=== PATIENT | female | born 1935 | race Hispanic/Latino ===

== ENCOUNTER 2017-10-21 03:23 | Inpatient (IN) | payer OTHER ==
[~2017-10-21] VITALS: Ht 160 cm; Wt 66.0 kg
[2017-10-21] MEDS ORDERED: LEVOTHYROXINE75 MCG PO (03:33)
[2017-10-21] MEDS ORDERED: LISINOPRIL10 M1 PO (03:33)
[2017-10-21] MEDS ORDERED: VIIBRYD40 M1 PO (03:34)
[2017-10-21] MEDS ORDERED: DEPAKOTE SPRIN125 M1 PO (03:34)
[2017-10-21] MEDS ORDERED: METFORMIN HCL1000 M1 PO (03:34)
[2017-10-21] MEDS ORDERED: SYSTANE 0.3-0.415 ML OPH (03:36)
[2017-10-21] MEDS ORDERED: DONEPEZIL HCL10 M1 PO (03:37)
[2017-10-21] MEDS ORDERED: CALCIUM 500 +1 EAC5 PO (03:38)
[2017-10-21] MEDS ORDERED: PRAVASTATIN SOD10 M2 PO (03:38)
[2017-10-21] MEDS ORDERED: SENEXON-S TABL1 EACH PO (03:39)
[2017-10-21] MEDS ORDERED: GAVILAX238 GM PO (03:41)
[2017-10-21] MEDS ORDERED: MILK OF MA400 MG/52 PO (03:42)
[2017-10-21] MEDS ORDERED: ENEMA133 M1 PR (03:43)
[2017-10-21] MEDS ORDERED: BISAC-EVAC10 M1 PR (03:43)
[2017-10-21] MEDS ORDERED: ACETAMINOPHEN500 M4 PO (03:44)
[2017-10-21] MEDS ORDERED: GLUCERNA1 EACH PO (03:44)
[2017-10-21] MEDS ORDERED: HUMALOG100 UNIT/2 SC (03:47)
[2017-10-21] MEDS ORDERED: LANTUS100 UNIT/1 SC (03:49)
[2017-10-21] MEDS ORDERED: ALENDRONATE SOD35 M2 PO (03:50)
[2017-10-21] MEDS ORDERED: LANTUS SOL100 UNIT/1 SC (03:50)
[2017-10-21 04:13] LABS: ABSOLUTE BASOPHIL COUNT 0 /CUMM (0.0-0.2); ABSOLUTE EOSINOPHIL COUNT 0.2 /CUMM (0.0-0.7); ABSOLUTE GRANULOCYTE CT 6.4 /CUMM (1.4-6.5); ABSOLUTE LYMPH COUNT 8.4 /CUMM (1.2-3.4); ABSOLUTE MONOCYTE COUNT 1.5 /CUMM (0.10-0.60); BASOPHIL % 0.2 % (0.0-2.0); GRANULOCYTE % 38.8 % (42.2-75.2); HEMATOCRIT 26.5 % (37-47); MEAN CORPUSCULAR HGB 29.1 PG (27.0-31.0); MEAN CORPUSCULAR HGB CONC 32.4 G/DL (33.0-37.0); MEAN CORPUSCULAR VOLUME 89.6 FL (81.0-99.0); PLATELET COUNT 235 /CUMM (130-400); RBC DISTRIBUTION WIDTH 15.3 % (11.5-14.5); RED BLOOD CELL CT 2.96 /CUMM (4.20-5.40); WHITE BLOOD CELL COUNT 16.6 /CUMM (4.8-10.8)
--- NOTE | 2017-10-21 04:15 | ED GI/GU/ABDOMINAL COMPLAINT ---
History of Present Illness General Chief Complaint: General Adult Stated Complaint: BIBA, VOMITING BLOOD Source: patient, old records, W10 Exam Limitations: clinical condition, dementia Vital Signs & Intake/Output Vital Signs & Intake/Output Vital Signs Date Time Temp Pulse Resp B/P B/P Pulse O2 O2 Flow FiO2 Mean Ox Delivery Rate 10/21 644 84 16 140/60 94 Room Air Room Air 10/21 0538 71 16 113/53 94 Room Air Room Air 10/21 0415 71 16 91/36 92 Room Air Room Air 10/21 0348 93 Room Air Room Air 10/21 0335 97.3 85 20 110/41 94 Room Air Allergies Coded Allergies: escitalopram (From LEXAPRO) (UNKNOWN 10/21/17) olanzapine (From ZYPREXA) (UNKNOWN 10/21/17) Reconcile Medications Acetaminophen 500 MG TABLET 650 MG PO Q4H,PRN PRN PAIN OR TEMP GREATER THAN 100 (Reported) Alendronate Sodium 35 MG TABLET 1 TAB PO QW (Reported) Bisacodyl (Bisac-Evac) 10 MG SUPP.RECT 1 SUPP [place] DAILY PRN CONSTIPATION ( Reported) Calcium Carbonate/Vitamin D3 (Calcium 500 + D Tablet) 500 MG-400 TABLET 1 TAB PO BID SUPPLEMENT (Reported) Divalproex Sodium (Depakote Sprinkle) 125 MG CAP.SPRINK 250 MG PO BID ( Reported) Donepezil HCl 10 MG TABLET 1 TAB PO DAILY (Reported) Insulin Glargine,Hum.rec.anlog (Lantus Solostar) 100 UNIT/ML (3 ML) INSULN.PEN 30 UNIT SC QPM DIABETES (Reported) Insulin Lispro (Humalog) 100 UNIT/ML VIAL DIABETES (Reported) SLIDING SCALE: BS 151-200 GIVE 2 UNITS BS 201-250 GIVE 4 UNITS BS 251-300 GIVE 6 UNITS BS 301-350 GIVE 8 UNITS BS 351-400 GIVE 10 UNITS Insulin-Lantus (Lantus) 100 UNIT/ML VIAL 30 UNITS SC QAM DIABETES (Reported) Levothyroxine Sodium 75 MCG TABLET 1 TAB PO DAILY HYPOTHYROID (Reported) Lisinopril 10 MG TABLET 1 TAB PO DAILY HTN (Reported) Magnesium Hydroxide (Milk Of Magnesia) 400 MG/5 ML ORAL.SUSP 30 ML PO DAILY PRN CONSTIPATION (Reported) Metformin HCl 1,000 MG TABLET 1 TAB PO BID DM (Reported) Na Phos,M-B/Na Phos,Di-Ba (Enema) 19 GRAM-7 GRAM/118 ML ENEMA 1 SUPP [place] DAILY PRN CONSTIPATION (Reported) Nut.tx.glucose Intolerance,Soy (Glucerna) 1 EACH BAR 1 PO DAILY PRN ( Reported) Polyethylene Glycol 3350 (Gavilax) 17 GRAM/DOSE POWDER 17 G PO DAILY PRN CONSTIPATION (Reported) Pravastatin Sodium 10 MG TABLET 1 TAB PO DAILY CHOLESTEROL (Reported) Propylene Glycol/Peg 400 (Systane 0.3-0.4% Eye Drops) 0.3 %-0.4 % DROPS 1 GTT OPH 4 TIMES/DAY CATARACTS (Reported) Sennosides/Docusate Sodium (Senexon-S Tablet) 8.6 MG-50 MG TABLET 1 TAB PO BEDTIME (Reported) Vilazodone (Viibryd) 40 MG TABLET 1 TAB PO DAILY (Reported) Triage Note: 82YO FEMALE TO 4 VIA AMB FROM [facility] SP EPISODE OF VOMITING BLOOD TONITE. UPON ARRIVAL--LG AMT OF FRESH RED BLOOD PRESENT ON LIPS, SHOULDERS. A,A, COOPERATIVE. INCONTINENT OF FORMED LT BROWN STOOL IN DIAPER--TESTED HEME NEG. Triage Nurses Notes Reviewed? yes LMP (ages 10-50): post menopausal ? n Is pt currently ? No Onset: Just prior to arrival Duration: minute(s):, better Timing: recent history Quality/Severity: vomiting Radiation: no radiation Activities at Onset: sleep Prior Abdominal Problems: none Past Sexual History: Unobtainable at this time Associated Symptoms: nausea/vomiting HPI: Prior to admission patient noted to have multiple episodes of vomiting bright red blood. There is no report of fever chills diarrhea chest pain cough shortness of breath headache dysuria rash. Past History Travel History Traveled to [place] past 21 day No Medical History Any Pertinent Medical History? 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 No Review of Systems Review of Systems Constitutional: Reports: no symptoms. EENTM: Reports: no symptoms. Respiratory: Reports: no symptoms. Cardiovascular: Reports: no symptoms. GI: Reports: see HPI, nausea, vomiting. Genitourinary: Reports: no symptoms. Musculoskeletal: Reports: no symptoms. Skin: Reports: no symptoms. Neurological/Psychological: Reports: no symptoms. Hematologic/Endocrine: Reports: no symptoms. Immunologic/Allergic: Reports: no symptoms. All Other Systems: Reviewed and Negative Physical Exam Physical Exam General Appearance: well developed/nourished, alert, awake, mild distress Head: atraumatic, normal appearance Eyes: Bilateral: normal appearance, PERRL, EOMI, normal inspection. Ears, Nose, Throat, Mouth: hearing grossly normal, moist mucous membrane Neck: normal inspection, supple, full range of motion, no midline tenderness Respiratory: normal breath sounds, chest non-tender, no respiratory distress, quiet respiration, lungs clear Cardiovascular: regular rate/rhythm, normal peripheral pulses, norml femoral pulses equa Peripheral Pulses: 4+ carotid (R), 4+ carotid (L) Gastrointestinal: normal bowel sounds, soft, non-tender, no organomegaly Rectal: heme negative stool Back: normal inspection, normal range of motion Extremities: normal range of motion, no ligament instability Neurologic/Psych: no motor/sensory deficits, disoriented x 3 Skin: pallor Core Measures ACS in differential dx? No Sepsis Present: No Sepsis Focused Exam Completed? No Progress Differential Diagnosis: gastritis, PUD/GERD Plan of Care: Orders Procedure Date/time Status Admit to inpatient 10/21 0646 Active LEUKOCYTE POOR (PACKED CELLS) 10/21 0646 Active URINALYSIS 10/21 0502 Complete Add-on Test (ER Only) 10/21 0411 Active DEPAKOTE LEVEL 10/21 0405 Complete PROTHROMBIN TIME 10/21 0400 Complete COMPREHENSIVE METABOLIC PANEL 10/21 0400 Complete CBC WITHOUT DIFFERENTIAL 10/21 0400 Complete TYPE & SCREEN (NOT X-MATCH) 10/21 0400 Active EKG 10/21 0353 Active Laboratory Tests 10/21/17 0640: Urinalysis HEAVY H, Urine Color YEL, Urine Clarity CLDY H, Urine pH 6.0, Ur Specific [place] >= 1.030, Urine Protein 100 H, Urine Ketones 15 H, Urine Nitrite NEG, Urine Bilirubin NEG, Urine Urobilinogen 0.2, Ur Leukocyte Esterase NEG, Ur Microscopic SEDIMENT EXAMINED, Urine RBC 5-10 H, Urine WBC 5-10 H, Ur Epithelial Cells MOD H, Urine Bacteria FEW H, Hyaline Casts 1-3 H, Urine Mucus MOD H, Urine Hemoglobin TRACE-LYSED, Urine Glucose 100 H 10/21/17 0405: Anion Gap 13, Estimated GFR 53 L, BUN/Creatinine Ratio 18.0, Glucose 225 H, Calcium 8.6, Total Bilirubin 0.5, AST 53 H, ALT 39, Alkaline Phosphatase 61, Total Protein 6.0 L, Albumin 3.1 L, Globulin 2.9, Albumin/Globulin Ratio 1.1, PT 15.9 H, INR 1.45 H, CBC w Diff MAN DIFF ORDERED, RBC 2.96 L, MCV 89.6, MCH 29.1, MCHC 32.4 L, RDW 15.3 H, MPV 8.0, Gran % 38.8 L, Lymphocytes % 50.7, Monocytes % 9.3, Eosinophils % 1.0, Basophils % 0.2, Absolute Granulocytes 6.4, Segmented Neutrophils 36 L, Band Neutrophils 2, Absolute Lymphocytes 8.4 H, Lymphocytes 54 H, Monocytes 5, Absolute Monocytes 1.5 H, Eosinophils 2, Absolute Eosinophils 0.2, Basophils 1, Absolute Basophils 0, Platelet Estimate ADEQUATE, Normocytic RBCs VERIFIED, Normochromic RBCs VERIFIED, Stomatocytes FEW , Valproic Acid 50.9 Diagnostic Imaging: Viewed by Me: Radiology Read. Discussed w/RAD: Radiology Read. CXR Impression: Suboptimal assessment due to patient rotation. No acute findings identified. Initial ED EKG: normal axis, normal intervals, normal p-waves, normal QRS complex, normal sinus rhythm, no ST T wave changes Prior EKG: unchanged Rhythm Strip: normal sinus rhythm Comments: Case discussed with Dr. Crump admit to ICU. Repeat CBC with worsening anemia. PRBC ordered. Departure Departure Disposition: STILL A PATIENT Condition: Stable Clinical Impression Primary Impression: Upper GI bleed Secondary Impressions: Anemia due to blood loss, acute, Leukocytosis Referrals: Basim FLORES,Bubba Meeks (PCP/Family) Departure Forms: Customer Survey General Discharge Information Admission Note Spoke With: Martita FLORES,Leonardo Dimas Documentation of Exam: Documentation of any treatments & extenuating circumstances including Concerns Regarding Discharge (functional status, medication knowledge or non-compliance, living conditions, etc.) that warrant an admission rather than observation: GI evaluation transfusion packed red blood cells serial lab exam medication adjustment continuing care discharge planning Critical Care Note Critical Care Note Critical Care Time: 30-74 min (40) ED Attending Observation Initial Observation Note: I have seen and personally examined COOPER MASON on 10/21/17 at 0414. I agree with the current emergency department documentation. The disposition (admission or discharge) is uncertain at this time, she needs a period of observation for the following reason(s): The ED Nurse caring for this patient has been personally informed as to what the patient is being observed for.
[2017-10-21 04:19] LABS: PT 15.9 SEC (9.4-12.5)
--- NOTE | 2017-10-21 05:59 | RADIOLOGY REPORT ---
EXAMINATION: XR PORTABLE CHEST CLINICAL INFORMATION: Nausea/vomiting COMPARISON: None TECHNIQUE: Portable frontal view of the chest was obtained. FINDINGS: Assessment is partially limited due to patient rotation. There is mild elevation of the right hemidiaphragm. No focal consolidation is seen bilaterally. No appreciable pneumothorax, pleural effusion, or overt pulmonary edema. The cardiac silhouette is prominent. Calcification is present at the aortic arch. No acute osseous findings are seen. IMPRESSION: Suboptimal assessment due to patient rotation. No acute findings identified.
--- NOTE | 2017-10-21 08:24 | History & Physical ---
Gaurang David 10/21/17 0824: General Information and HPI MD Statement: I have seen and personally examined COOPER MASON and documented this H&P. The patient is a 82 year old F who presented with a patient stated chief complaint of hematemesis since last night Source of Information: family, old records Exam Limitations: poor historian, language barrier History of Present Illness: This is a 82-year-old female with past medical history significant for osteoarthritis, constipation, depression, Alzheimer's dementia, diabetes mellitus type 2, hypothyroidism, hypertension, generalized weakness, gait instability, hyperlipidemia, [place] palsy with no residual deficits, brought in by ambulance from [facility] to [facility] emergency room for multiple episodes of hematemesis last night. Patient has history of Alzheimer's dementia, residing at [facility] since June 2017. Patient usually follows kinesiotherapist Monico and PCP Dr Arriaga. According to the daughter who provided most of the history, patient had multiple episodes of bloody vomitus/blood gushed out from her mouth, around 2 AM, dark red blood with clots, which prompted the nurse to bring her to the emergency room for further evaluation. Other than hematemesis patient denies any nausea, vomiting, abdominal pain, melena, hematochezia. Stool guaiac was negative. Patient reports lightheadedness, dizziness. Denies any use of [id number] analgesics, aspirin, anticoagulants or antiplatelet agents. Denies alcohol abuse. No prior history of GI bleeds. No history of liver disease, coagulation disorders. Patient was never admitted in the past for any GI bleed. Last admission was to [facility] for hypertension and diabetes management. On review of systems denies any fever, chills, chest pain, short of breath, nausea, vomiting, abdominal pain change in bladder or bowel habits, headache, focal deficits, weakness, sensory changes, gait or vision changes. Denies any syncopal episode. Patient denies smoking, alcohol abuse, illicit drug abuse. Patient uses walker for ambulation. She needs assistance for all the activities. Allergies/Medications Allergies: Coded Allergies: escitalopram (From LEXAPRO) (UNKNOWN 10/21/17) olanzapine (From ZYPREXA) (UNKNOWN 10/21/17) Home Med list Acetaminophen 500 MG TABLET 650 MG PO Q4H,PRN PRN PAIN OR TEMP GREATER THAN 100 (Reported) Alendronate Sodium 35 MG TABLET 1 TAB PO QW (Reported) Bisacodyl (Bisac-Evac) 10 MG SUPP.RECT 1 SUPP [place] DAILY PRN CONSTIPATION ( Reported) Calcium Carbonate/Vitamin D3 (Calcium 500 + D Tablet) 500 MG-400 TABLET 1 TAB PO BID SUPPLEMENT (Reported) Divalproex Sodium (Depakote Sprinkle) 125 MG CAP.SPRINK 250 MG PO BID ( Reported) Donepezil HCl 10 MG TABLET 1 TAB PO DAILY (Reported) Insulin Glargine,Hum.rec.anlog (Lantus Solostar) 100 UNIT/ML (3 ML) INSULN.PEN 30 UNIT SC QPM DIABETES (Reported) Insulin Lispro (Humalog) 100 UNIT/ML VIAL DIABETES (Reported) SLIDING SCALE: BS 151-200 GIVE 2 UNITS BS 201-250 GIVE 4 UNITS BS 251-300 GIVE 6 UNITS BS 301-350 GIVE 8 UNITS BS 351-400 GIVE 10 UNITS Insulin-Lantus (Lantus) 100 UNIT/ML VIAL 30 UNITS SC QAM DIABETES (Reported) Levothyroxine Sodium 75 MCG TABLET 1 TAB PO DAILY HYPOTHYROID (Reported) Lisinopril 10 MG TABLET 1 TAB PO DAILY HTN (Reported) Magnesium Hydroxide (Milk Of Magnesia) 400 MG/5 ML ORAL.SUSP 30 ML PO DAILY PRN CONSTIPATION (Reported) Metformin HCl 1,000 MG TABLET 1 TAB PO BID DM (Reported) Na Phos,M-B/Na Phos,Di-Ba (Enema) 19 GRAM-7 GRAM/118 ML ENEMA 1 SUPP [place] DAILY PRN CONSTIPATION (Reported) Nut.tx.glucose Intolerance,Soy (Glucerna) 1 EACH BAR 1 PO DAILY PRN ( Reported) Polyethylene Glycol 3350 (Gavilax) 17 GRAM/DOSE POWDER 17 G PO DAILY PRN CONSTIPATION (Reported) Pravastatin Sodium 10 MG TABLET 1 TAB PO DAILY CHOLESTEROL (Reported) Propylene Glycol/Peg 400 (Systane 0.3-0.4% Eye Drops) 0.3 %-0.4 % DROPS 1 GTT OPH 4 TIMES/DAY CATARACTS (Reported) Sennosides/Docusate Sodium (Senexon-S Tablet) 8.6 MG-50 MG TABLET 1 TAB PO BEDTIME (Reported) Vilazodone (Viibryd) 40 MG TABLET 1 TAB PO DAILY (Reported) Compliance With Home Meds: GOOD Past History Travel History Traveled to [place] past 21 day No Medical History Neurological: delerium, dementia, BELLS PALSY EENT: cataracts Cardiovascular: hypertension, hyperlipidemia, PROLONGED QT Respiratory: NONE Gastrointestinal: constipation Hepatic: NONE Renal: PEYTON Musculoskeletal: MUSCLE WEAKNESS GAIT INSTABILITY Psychiatric: depression Endocrine: diabetes, hypothyroidism Blood Disorders: NONE Cancer(s): NONE 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 Denies: see HPI, chills, fever, malaise, unexplained weight loss. EENTM: Denies: blurred vision, double vision. Cardiovascular: Denies: chest pain, edema, orthopena, palpitations, peripheral edema, syncope. Respiratory: Denies: cough, hemoptysis, orthopnea, short of breath, sputum production, stridor, wheezing. GI: Reports: constipation, vomiting. Denies: abdominal pain, bloating, diarrhea, distention, bowel incontinence, melena, nausea, bloody stool, changes in stool. Genitourinary: Denies: discharge, dysuria, frequency. Musculoskeletal: Denies: back pain, gout, joint pain. Neurological/Psychological: Reports: depressed, dementia. Exam & Diagnostic Data Last 24 Hrs of Vital Signs/I&O Vital Signs Date Time Temp Pulse Resp B/P B/P Pulse O2 O2 Flow FiO2 Mean Ox Delivery Rate 10/21 0750 98.2 89 20 123/51 94 Room Air 10/21 0735 98.1 86 20 115/56 94 Room Air / 0645 84 16 140/60 94 Room Air Room Air / 0538 71 16 113/53 94 Room Air Room Air / 0415 71 16 91/36 92 Room Air Room Air 10/21 0348 93 Room Air Room Air 10/21 0335 97.3 85 20 110/41 94 Room Air Intake & Output 10/21 1600 / 0800 05/ 0000 Intake Total 2000 Output Total 350 Balance 1650 Intake, IV 2000 Number 2 Bowel Movements Output, Urine 350 Patient 72.575 kg Weight Physical Exam General Appearance Alert, Oriented X3, Cooperative, No Acute Distress Skin No Rashes, No Breakdown Skin Temp/Moisture Exam: Warm/Dry Sepsis Skin Exam (color): Normal for Ethnicity HEENT Atraumatic, PERRLA, EOMI, Mucous Membr. moist/pink Neck Supple, No JVD Lymphatic Cervical nl Cardiovascular Regular Rate, Normal S1, Normal S2, No Murmurs Lungs Clear to Auscultation, Normal Air Movement Abdomen Normal Bowel Sounds, Soft, No Tenderness Extremities No Clubbing, No Cyanosis, No Edema, Normal Pulses, No Tenderness/ Swelling Vascular Normal Pulses, Pulses Symmetrical Sepsis Peripheral Pulse Location: Radial Sepsis Peripheral Pulse Exam: Normal Sepsis Cap Refill Exam: <2 Sec Last 24 Hrs of Labs/Fausto: Laboratory Tests 10/21/17 0640: Urinalysis HEAVY H, Urine Color YEL, Urine Clarity CLDY H, Urine pH 6.0, Ur Specific [place] >= 1.030, Urine Protein 100 H, Urine Ketones 15 H, Urine Nitrite NEG, Urine Bilirubin NEG, Urine Urobilinogen 0.2, Ur Leukocyte Esterase NEG, Ur Microscopic SEDIMENT EXAMINED, Urine RBC 5-10 H, Urine WBC 5-10 H, Ur Epithelial Cells MOD H, Urine Bacteria FEW H, Hyaline Casts 1-3 H, Urine Mucus MOD H, Urine Hemoglobin TRACE-LYSED, Urine Glucose 100 H 10/21/17 0405: Anion Gap 13, Estimated GFR 53 L, BUN/Creatinine Ratio 18.0, Glucose 225 H, Serum Osmolality Pending, Calcium 8.6, Total Bilirubin 0.5, AST 53 H, ALT 39, Alkaline Phosphatase 61, Total Protein 6.0 L, Albumin 3.1 L, Globulin 2.9, Albumin/Globulin Ratio 1.1, TSH Pending, Free T4 Pending, PT 15.9 H, INR 1.45 H, CBC w Diff MAN DIFF ORDERED, RBC 2.96 L, MCV 89.6, MCH 29.1, MCHC 32.4 L, RDW 15.3 H, MPV 8.0, Gran % 38.8 L, Lymphocytes % 50.7, Monocytes % 9.3, Eosinophils % 1.0, Basophils % 0.2, Absolute Granulocytes 6.4, Segmented Neutrophils 36 L, Band Neutrophils 2, Absolute Lymphocytes 8.4 H, Lymphocytes 54 H, Monocytes 5, Absolute Monocytes 1.5 H, Eosinophils 2, Absolute Eosinophils 0.2, Basophils 1, Absolute Basophils 0, Platelet Estimate ADEQUATE, Normocytic RBCs VERIFIED, Normochromic RBCs VERIFIED, Stomatocytes FEW, Valproic Acid 50.9 Microbiology 10/21 0800 UPPER RESP: Surveillance Culture - ORD Assessment/Plan Assessment: This is a 82-year-old female with past medical history significant for osteoarthritis, constipation, depression, Alzheimer's dementia, diabetes mellitus type 2, hypothyroidism, hypertension, generalized weakness, gait instability, hyperlipidemia, [place] palsy with no residual deficits, brought in by ambulance from [facility] to [facility] emergency room for multiple episodes of hematemesis last night. Patient has history of Alzheimer's dementia, residing at [facility] since June 2017. Patient usually follows kinesiotherapist Monico and PCP Dr Corina Bernal at the time of admission afebrile, heart rate 85, respiratory rate 20, blood pressure 110/40, saturating at 94 on room air Labs WBC 16.6, hemoglobin 8.6 and hematocrit 26, platelets 235 Sodium 128, potassium 4.7, BUN 18 and creatinine 1, glucose 225 INR 1.45 LFTs 0.5, 53, 39, 61 Chest x-ray no pulmonary consolidation was found EKG sinus rhythm, left anterior fascicular block, rate 81, no acute ST-T wave changes Patient was given 1 L of sodium chloride bolus and started on Protonix drip. 1. Upper GI bleed/hematemesis /acute anemia Patient was brought in from [facility] for evaluation of multiple episodes of hematemesis overnight. Other than hematemesis patient denies any nausea, vomiting, abdominal pain, melena, hematochezia. Stool guaiac was negative. Patient reports lightheadedness, dizziness. Denies any use of over- the-counter analgesics, aspirin, anticoagulants or antiplatelet agents. Denies alcohol abuse. No prior history of GI bleeds. No history of liver disease, coagulation disorders. Patient was never admitted in the past for any GI bleed. She is hemodynamically stable with heart rate less than 90, blood pressure ranging around 120. Hemoglobin 8.6 and hematocrit 26.5 at the time of admission. Prior hemoglobin was 11.5 as per charts. * Admit to ICU for acute GI bleed * Possible differentials upper GI bleed/hematemesis most possibly from esophagitis, gastritis, peptic ulcer disease, Pau-Singletary tears, variceal bleed, iatrogenic. off note she has no risk factors for GI bleed except for possible nonalcoholic fatty liver disease in the setting of diabetes mellitus . * Type and screen * 2 large IV bore needles * Patient is nothing by mouth * Endoscopy * Serial monitoring of hemoglobin every 12 hours * Status post 1 unit blood transfusion * Avoid NSAIDS * Orthostatic vitals * Stool guaiac * Continue Protonix IV 40 twice daily * Goal hemoglobin above 7 * Follow-up Gastro recommendations * Monitor for any active signs of GI bleed Questionable underlying liver disease INR 4.5, hypoalbuminemia 3.1. Patient also has hyponatremia. Given coagulopathy hypoalbuminemia and hyponatremia, there is possibility for underlying liver disease. However patient has no known history of any hepatitis , autoimmune disease, cirrhosis of liver. * Will get ultrasound right upper quadrant * Hepatitis panel * Alpha-fetoprotein * Requested records from [facility] Hyponatremia Sodium 128 at the time of admission. Looks like hypovolemic hyponatremia from GI blood loss. * Will check serum osmolality, urine osmolality, urine lites * check thyroid function tests * Provide adequate hydration * Serial monitoring of sodium * Monitor for any signs of altered mental status leukocytosis WBC 16.6 at the time of admission, no bandemia, no fever, chills. Chest x-ray no focal consolidation was found. Urine looks normal, no infection. Leukocytosis most likely reactive * Monitor for fever, chills * Monitor WBC count * Monitor off from antibiotics for now Diabetes mellitus Hold home medication metformin Fingerstick checks Continue Levemir 15 units a.m. and 30 units nighttime NovoLog sliding scale Osteoarthritis continue alendronate every Wednesday Depression continue divalproex Dementia continue donepezil 10 mg daily Hypothyroidism continue levothyroxine 75 g daily Hypertension, takes lisinopril 10 daily hold lisinopril for now given GI bleed Hyperlipidemia continue pravastatin 10 mg daily Chronic constipation Patient is full code Nothing by mouth DVT prophylaxis alps given GI bleed Pain pathway Tylenol as needed central line- none intubation- none Foleys catheter-none NG tube-none 2 peripheral IV lines As Ranked By This Provider Problem List: 1. Upper GI bleed 2. Anemia due to blood loss, acute 3. Leukocytosis Core Measures/Misc (03/07) Acute Coronary Syndrome ACS Diagnosis: No Congestive Heart Failure Congestive Heart Failure Diagnosis No Cerebrovascular Accident CVA/TIA Diagnosis: No VTE (View Protocol) VTE Risk Factors Age>40 No Mechanical VTE Prophylaxis d/t Surgical Contraindication No VTE Pharm Prophylaxis d/t Surgical Contraindication Sepsis (View protocol) Sepsis Present: No Leonardo Anders MD 10/21/17 1010: Attending MD Review Statement Attending Statement Attending MD Statement: examined this patient, discuss w/resident/PA/MANAGEMENT CONSULTANT, agreed w/resident/PA/MANAGEMENT CONSULTANT, discussed with family, reviewed EMR data (avail), discussed with nursing, discussed with case mgmt, reviewed images, amended to note Attending Assessment/Plan: This is a 82-year-old female with past medical history significant for osteoarthritis, constipation, depression, Alzheimer's dementia, diabetes mellitus type 2, hypothyroidism, hypertension, generalized weakness, gait instability, hyperlipidemia, [place] palsy with no residual deficits, brought in by ambulance from [facility] to [facility] emergency room for multiple episodes of hematemesis last night. Patient has history of Alzheimer's dementia, residing at extended care facility [facility] since June 2017. Issues CARMEL bleed, diff dx as above Dementia Hyponatremia Leukocytosis DM HIstory of fall OA/Depression/HTN/JHyperlipedemia PLAN As above Gentle resusitation EGD IV ppi NPo GI aware HOld po meds Will get history from snf Plan as above
[2017-10-21 09:14] VITALS: BP 130/70
--- NOTE | 2017-10-21 11:47 | Proc Note Endoscopy ---
Endoscopy Procedure Medical History: unchanged Mental Status: alert/oriented Heart/Lung Eval Prior to Sedation: within normal limits Candidate for Sedation? Yes Procedure Date: 10/21/17 Procedure Type: EGD with Variceal Band Ligation for control of bleeding Stock Worker: MD Grullon Deborah E. ASA Classification: III Indications: 1. Hematemesis 2. Acute blood loss anemia Instrument: diagnostic gastroscope Meds Received: MAC Patient's Tolerance: good Complications: none Extent Reached: second part of duodenum Procedure: Note: Informed consent was obtained prior to procedure. Risks and benefits of procedure were discussed with patient. Potential complications discussed included perforation, bleeding, abdominal pain, and adverse reaction to medications. It was explained that iany or all of these complications could result in the need for extended hospitalization, emergency surgery, transfusion of packed red blood cells (with the risk of HIV or hepatitis virus), intubation with mechanical ventilation, and possible need for antibiotics. It was further explained that an existing tumor polyp or mucosal abnormality might not be identified at the time of the procedure thus resulting in a missed opportunity for early diagnosis and treatment of a gastrointestinal malignancy or disease with possible interval development of a gastrointestinal cancer or other disease with possible worsening of clinical condition in the interval between endoscopies. It was also discussed that complications are not limited to those listed above. Possible alternatives to endoscopic treatment or evaluation were discussed. All questions were answered. Continuous EKG and blood pressure monitors were attached. Supplemental oxygen was provided with O2 Sat monitoring. Patient was placed in the left lateral decubitus position. A surgical timeout was performed. All persons in the room were identified. All concerns were expressed and answered. A bite block was placed in the mouth and sedation was administered by anesthesia and titrated to comfort prior to starting the procedure. The Olympus upper endoscope was advanced under direct vision to the level of the third portion of the duodenum. Esophagus: The GE junction was identified was located at 37 cm from the incisors. There were 3 columns of grade 2 esophageal varices which extended cephalad to 25 cm from the incisors. One column had a large fibrin clot. After complete EGD was done the upper endoscope was withdrawn and a [employer] biomedical equipment technician was placed on the endoscope. The endoscope was reintroduced under direct vision to the level of the GE junction it was withdrawn above the GE junction and 5 bands were placed at 1-2 cm intervals and a spiral fashion. There was no bleeding during banding or afterwards. Stomach: The stomach had a large amount of old blood throughout its entirety. Retroflexed view of the cardiofundic region revealed a large clot of dark blood which could not be completely suctioned. Blood within the distal body and antrum was completely washed. There was gastric mucosal atrophy but no erythema or ulceration. The pylorus was patent and easily intubated. Duodenum: The duodenum was fully examined from bulb down to the third portion. There was a large amount of blood throughout the entire duodenum. The mucosa was washed and where visible appeared normal. With the endoscope in the forward-viewing position, it was slowly withdrawn and all areas were re-inspected and findings are as described previously. Patient tolerated the procedure well. EBL: Minimal Specimens Removed: None Findings: 1. Grade 2 esophageal varices with stigmata of bleeding, status post variceal band ligation 2. Large amount of blood obscuring fundus and duodenum Impression: Grade 2 esophageal varices with stigmata of bleeding Recommendations: 1. Ceftriaxone 2 g IV now 2. Start octreotide 50 g bolus and 50 mcg/m 3. Nothing by mouth until a.m. then begin clear liquid diet 4. H&H every 4 hours for 24 hours 5. Call Staci Grullon M.D. for recurrent upper GI bleeding 6. Ultrasound of the right upper quadrant 7. Check alpha-fetoprotein and hepatitis serologies 8. Results of upper endoscopy discussed with patient's family members believe patient with underlying cirrhosis in all likelihood related to nonalcoholic fatty liver disease in the setting of diabetes mellitus.
--- NOTE | 2017-10-21 13:10 | Event Note ---
Event Note Event Note: S/P EGD Findings: 1. Grade 2 esophageal varices with stigmata of bleeding, status post variceal band ligation 2. Large amount of blood obscuring fundus and duodenum Impression: Grade 2 esophageal varices with stigmata of bleeding Spoke with Dr. Grullon after endoscopy. Recommended to give 1 dose of ceftriaxone and start octreotide drip given Grade 2 esophageal varices with stigmata of bleeding. She will be nothing by mouth today. Will check serial hemoglobin and hematocrit every 4 hours for next 24 hours. Also we requested records from [facility] to see whether she has underlying cirrhosis leading to esophageal varices. Will get a right upper quadrant ultrasound, alpha-fetoprotein and hepatitis panel. -------- Around 12:45 PM After coming from GI suite patient reported 10 out of 10 abdominal pain, abdominal distention. Denies any nausea, vomiting, hematemesis, melena, hematochezia. Denies any tenderness on palpation, guarding, rigidity. Bowel sounds were tympanic. Dr. Grullon at bedside. Recommended to get stat abdominal x-ray to look for any obstruction. * Rectal tube was placed. * F/U abdomen x-ray- Suboptimal evaluation. No definite radiographic evidence of free intraperitoneal air. * will get CT abd with out contrast.
--- NOTE | 2017-10-21 13:27 | Cons- Gastroenterology ---
General Information and HPI Consulting Request Date of Consult: 10/21/17 Requested By: Martita FLORES,Leonardo Dimas Reason for Consult: 1. Hematemesis 2. Acute blood loss anemia 3. Coagulopathy Source of Information: electronic medical record Exam Limitations: unable to give history, dementia History of Present Illness: Ms. Joyce is an 82-year-old white female with past medical history of diabetes mellitus which is insulin-dependent, hypertension, and dyslipidemia who was brought to [facility] ED with a chief complaint of hematemesis of bright red blood with clots last night. Patient has no history of peptic ulcer disease and no known history of prior GI bleed. Patient has not been receiving NSAIDs or aspirin at the [facility] where [facility] a [facility]. History is obtained from the chart as patient is unable to 5 any history given underlying dementia. Allergies/Medications Allergies: Coded Allergies: escitalopram (From LEXAPRO) (UNKNOWN 10/21/17) olanzapine (From ZYPREXA) (UNKNOWN 10/21/17) Home Med List: Acetaminophen 500 MG TABLET 650 MG PO Q4H,PRN PRN PAIN OR TEMP GREATER THAN 100 (Reported) Alendronate Sodium 35 MG TABLET 1 TAB PO QW (Reported) Bisacodyl (Bisac-Evac) 10 MG SUPP.RECT 1 SUPP [place] DAILY PRN CONSTIPATION ( Reported) Calcium Carbonate/Vitamin D3 (Calcium 500 + D Tablet) 500 MG-400 TABLET 1 TAB PO BID SUPPLEMENT (Reported) Divalproex Sodium (Depakote Sprinkle) 125 MG CAP.SPRINK 250 MG PO BID ( Reported) Donepezil HCl 10 MG TABLET 1 TAB PO DAILY (Reported) Insulin Glargine,Hum.rec.anlog (Lantus Solostar) 100 UNIT/ML (3 ML) INSULN.PEN 30 UNIT SC QPM DIABETES (Reported) Insulin Lispro (Humalog) 100 UNIT/ML VIAL DIABETES (Reported) SLIDING SCALE: BS 151-200 GIVE 2 UNITS BS 201-250 GIVE 4 UNITS BS 251-300 GIVE 6 UNITS BS 301-350 GIVE 8 UNITS BS 351-400 GIVE 10 UNITS Insulin-Lantus (Lantus) 100 UNIT/ML VIAL 30 UNITS SC QAM DIABETES (Reported) Levothyroxine Sodium 75 MCG TABLET 1 TAB PO DAILY HYPOTHYROID (Reported) Lisinopril 10 MG TABLET 1 TAB PO DAILY HTN (Reported) Magnesium Hydroxide (Milk Of Magnesia) 400 MG/5 ML ORAL.SUSP 30 ML PO DAILY PRN CONSTIPATION (Reported) Metformin HCl 1,000 MG TABLET 1 TAB PO BID DM (Reported) Na Phos,M-B/Na Phos,Di-Ba (Enema) 19 GRAM-7 GRAM/118 ML ENEMA 1 SUPP [place] DAILY PRN CONSTIPATION (Reported) Nut.tx.glucose Intolerance,Soy (Glucerna) 1 EACH BAR 1 PO DAILY PRN ( Reported) Polyethylene Glycol 3350 (Gavilax) 17 GRAM/DOSE POWDER 17 G PO DAILY PRN CONSTIPATION (Reported) Pravastatin Sodium 10 MG TABLET 1 TAB PO DAILY CHOLESTEROL (Reported) Propylene Glycol/Peg 400 (Systane 0.3-0.4% Eye Drops) 0.3 %-0.4 % DROPS 1 GTT OPH 4 TIMES/DAY CATARACTS (Reported) Sennosides/Docusate Sodium (Senexon-S Tablet) 8.6 MG-50 MG TABLET 1 TAB PO BEDTIME (Reported) Vilazodone (Viibryd) 40 MG TABLET 1 TAB PO DAILY (Reported) Current Medications: Current Medications Sig/Atul Start time Last Medication Dose Route Stop Time Status Admin Acetaminophen 650 MG Q6P PRN 10/21 0815 AC PO Ceftriaxone Sodium 2,000 MG ONCE ONE 10/21 1215 DC IV 10/21 1216 Divalproex Sodium 250 MG BID 10/21 09 AC PO Donepezil HCl 10 MG DAILY 10/21 0900 AC PO Erythromycin 250 MG ONCE ONE 10/21 0945 DC Sodium Chloride 100 ML IV 10/21 1044 Insulin Detemir 15 UNITS DAILY 10/22 0900 AC SC Insulin Detemir 30 UNITS QPM 10/21 2100 AC SC Insulin Human Regular 0 Q6 10/21 1200 AC SC Levothyroxine Sodium 0.075 MG DAILY 10/21 0900 AC PO Metoclopramide HCl 10 MG ONCE ONE 10/21 0945 DC 10/21 IV 10/21 0946 1005 Octreotide Acetate 50 MCG ONCE ONE 10/21 1230 DC IV 10/21 1231 Octreotide Acetate 500 MCG Q10H 10/21 1230 AC Sodium Chloride 500 ML IV Pantoprazole Sodium 40 MG BID 10/21 0900 AC IV Pantoprazole Sodium 0 .STK-MED ONE 10/21 0421 DC IV Pantoprazole Sodium 40 MG ONCE ONE 10/21 414 DC 10/21 IV 10/21 0416 0427 Pravastatin Sodium 10 MG DAILY 10/21 899 AC PO Sodium Chloride 1,000 ML Q13H 10/21 899 AC IV 10/22 1059 Sodium Chloride 1,000 ML BOLUS ONE 10/21 414 DC 10/21 IV 10/21 513 0410 Past History Travel History Traveled to [place] past 21 day No Medical History Blood Transfusion Hx: Yes Neurological: delerium, dementia, BELLS PALSY EENT: cataracts Cardiovascular: hypertension, hyperlipidemia, PROLONGED QT Respiratory: NONE Gastrointestinal: constipation Hepatic: NONE Renal: PEYTON Musculoskeletal: MUSCLE WEAKNESS GAIT INSTABILITY Psychiatric: depression Endocrine: diabetes, hypothyroidism Blood Disorders: NONE Cancer(s): NONE 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 [facility] Smoking Status: Never Smoked ETOH Use: denies use Illicit Drug Use: denies illicit drug use Exam & Diagnostic Data Vital Signs and I&O Vital Signs Date Time Temp Pulse Resp B/P B/P Pulse O2 O2 Flow FiO2 Mean Ox Delivery Rate 10/21 913 98.2 70 16 130/70 95 Room Air / 0750 98.2 89 20 123/51 94 Room Air / 0735 98.1 86 20 115/56 94 Room Air / 0645 84 16 140/60 94 Room Air Room Air / 0538 71 16 113/53 94 Room Air Room Air / 0415 71 16 91/36 92 Room Air Room Air 10/21 0348 93 Room Air Room Air 10/21 0335 97.3 85 20 110/41 94 Room Air Intake & Output 10/21 1600 10/21 04010/20 1600 10/20 0400 10/19 1600 10/19 0400 Intake Total 1999 Output Total 350 Balance 1650 Intake, IV 2000 Number 2 Bowel Movements Output, Urine 350 Patient 149 lb 160 lb Weight Weight Bed scale Measurement Method Physical Exam General Appearance: well developed/nourished, no apparent distress, alert, awake Head: atraumatic, normal appearance Eyes: Bilateral: normal appearance. Ears, Nose, Throat: hearing grossly normal Neck: normal inspection, supple, full range of motion Respiratory: normal breath sounds, lungs clear Cardiovascular: regular rate/rhythm, normal S1 and S2 without rub murmur or gallop Gastrointestinal: normal bowel sounds, soft, non-tender, distention Neurologic/Psych: awake, alert, disoriented x 3 Cranial Nerves: normal hearing, cranial nerves II-XII grossly intact Skin: intact, normal color, warm/dry Results Pertinent Lab Results: Laboratory Tests 10/21 10/21 0640 0405 Chemistry Sodium (137 - 145 mmol/L) 128 L Potassium (3.5 - 5.1 mmol/L) 4.7 Chloride (98 - 107 mmol/L) 93 L Carbon Dioxide (22 - 30 mmol/L) 22 Anion Gap (5 - 16) 13 BUN (7 - 17 mg/dL) 18 H Creatinine (0.5 - 1.0 mg/dL) 1.0 Estimated GFR (>60 ml/min) 53 L BUN/Creatinine Ratio (7 - 25 %) 18.0 Glucose (65 - 99 mg/dL) 225 H Serum Osmolality (285 - 295 MOSM/KG) 282 L Calcium (8.4 - 10.2 mg/dL) 8.6 Total Bilirubin (0.2 - 1.3 mg/dL) 0.5 AST (14 - 36 U/L) 53 H ALT (9 - 52 U/L) 39 Alkaline Phosphatase (<127 U/L) 61 Total Protein (6.3 - 8.2 g/dL) 6.0 L Albumin (3.5 - 5.0 g/dL) 3.1 L Globulin (1.9 - 4.2 gm/dL) 2.9 Albumin/Globulin Ratio (1.1 - 2.2 %) 1.1 Vitamin B12 (239 - 931 pg/mL) Pending Folate (2.76 - 20.0 ng/mL) Pending TSH (0.270 - 4.200 uIU/mL) 6.440 H Free T4 (0.85 - 1.93 ng/dL) 1.78 Coagulation PT (9.4 - 12.5 SEC) 15.9 H INR (0.90 - 1.19) 1.45 H Hematology CBC w Diff MAN DIFF ORDERED WBC (4.8 - 10.8 /CUMM) 16.6 H RBC (4.20 - 5.40 /CUMM) 2.96 L Hgb (12.0 - 16.0 G/DL) 8.6 L Hct (37 - 47 %) 26.5 L MCV (81.0 - 99.0 FL) 89.6 MCH (27.0 - 31.0 PG) 29.1 MCHC (33.0 - 37.0 G/DL) 32.4 L RDW (11.5 - 14.5 %) 15.3 H Plt Count (130 - 400 /CUMM) 235 MPV (7.4 - 10.4 FL) 8.0 Gran % (42.2 - 75.2 %) 38.8 L Lymphocytes % (20.5 - 51.1 %) 50.7 Monocytes % (1.7 - 9.3 %) 9.3 Eosinophils % (0 - 5 %) 1.0 Basophils % (0.0 - 2.0 %) 0.2 Absolute Granulocytes (1.4 - 6.5 /CUMM) 6.4 Segmented Neutrophils (42.2 - 75.2 %) 36 L Band Neutrophils (0.0 - 5.0 %) 2 Absolute Lymphocytes (1.2 - 3.4 /CUMM) 8.4 H Lymphocytes (20.5 - 51.1 %) 54 H Monocytes (1.7 - 9.3 %) 5 Absolute Monocytes (0.10 - 0.60 /CUMM) 1.5 H Eosinophils (0 - 5.0 %) 2 Absolute Eosinophils (0.0 - 0.7 /CUMM) 0.2 Basophils (0.0 - 2.0 %) 1 Absolute Basophils (0.0 - 0.2 /CUMM) 0 Platelet Estimate (ADEQUATE) ADEQUATE Normocytic RBCs VERIFIED Normochromic RBCs VERIFIED Stomatocytes FEW Toxicology Valproic Acid (50 - 120 ug/mL) 50.9 Urines Urinalysis HEAVY H Urine Color (YEL,AMB,STR) YEL Urine Clarity (CLEAR) CLDY H Urine pH (5.0 - 8.0) 6.0 Ur Specific [place] (1.001 - 1.035) >= 1.030 Urine Protein (NEG,<30 MG/DL) 100 H Urine Ketones (NEG) 15 H Urine Nitrite (NEG) NEG Urine Bilirubin (NEG) NEG Urine Urobilinogen (0.1 - 1.0 EU/dl) 0.2 Ur Leukocyte Esterase (NEG) NEG Ur Microscopic SEDIMENT EXAMINED Urine RBC (0 - 5 /HPF) 5-10 H Urine WBC (0 - 2 /HPF) 5-10 H Ur Epithelial Cells (NONE,FEW) MOD H Urine Bacteria (NEG/NONE) FEW H Hyaline Casts (0/LPF) 1-3 H Urine Mucus (FEW,NONE) MOD H Urine Hemoglobin (NEG) TRACE-LYSED Urine Glucose (N MG/DL) 100 H 05/03 0400 Chemistry Alpha Fetoprotein Pending Assessment/Plan Assessment/Recommendations: ASSESSMENT: 1. Hematemesis. Question peptic ulcer disease. Given coagulopathy and hypoalbuminemia as well as hyponatremia question whether patient with underlying liver disease. Patient has no known history of hepatitis or autoimmune liver disease. 2. Coagulopathy 3. Acute blood loss anemia 4. Insulin-dependent diabetes mellitus 5. Hyponatremia 6. Chronic COnstipation RECOMMENDATIONS: 1. Urgent EGD. Both risks and benefits of EGD with possible band ligation of esophageal varices were discussed with patient's daughter who is power of staff attorney. 2. Ceftriaxone 2 g IV at time of EGD 3. Alpha-fetoprotein 4. Hepatitis serologies, JACK and ASMA 5. Ultrasound right upper quadrant 6. 2 large-bore IV 7. Protonix 40 mg IV twice a day 8. WIll start octreotide if patient found to have evidence of underlying liver disease. Patient with no known diagnosis of cirrhosis or hepatitis 9. Serial H&H every 4 hours for first 24 hours then decrease to Q8-6 hours pending on clinical status 10. Correct Hyponatremia Consult Acknowledgment - Thank you for your consult request.
--- NOTE | 2017-10-21 13:51 | RADIOLOGY REPORT ---
EXAMINATION: XR ABDOMEN CLINICAL INDICATION: Acute abdominal pain following upper GI endoscopy. Suspected bowel perforation. COMPARISON: None TECHNIQUE: AP view of the abdomen. FINDINGS: The study is technically limited due to motion-related artifacts. The stomach is filled with air. Nonspecific air is identified throughout the bowel loops. There is no definite radiographic evidence of any free intraperitoneal air visualized on this suboptimal portable supine radiograph. IMPRESSION: Suboptimal evaluation. No definite radiographic evidence of free intraperitoneal air. This critical result was discussed with Dr. David at 1:32 PM on 10/21/2017 and it was ascertained that the content and urgency of the report was understood at the time of direct communication.
--- NOTE | 2017-10-21 15:20 | CT SCAN REPORT ---
EXAMINATION: CT ABDOMEN AND PELVIS WITHOUT CONTRAST CLINICAL INFORMATION: Severe abdominal pain and distention. COMPARISON: Radiograph from today TECHNIQUE: Multidetector volumetric imaging was performed from the superior aspect of the liver through the pubic symphysis. Sagittal and coronal reformatted images were obtained on the technologist's workstation. DLP: 504 mGy-cm FINDINGS: LUNG BASES: The visualized lung bases are unremarkable. LIVER, GALLBLADDER, AND BILIARY TREE: The liver is normal in size, shape, and attenuation. No focal hepatic lesion or biliary ductal dilatation is present. There is a small volume of perihepatic ascites. The gallbladder is distended. No gallbladder wall thickening or pericholecystic fluid noted. No radiopaque gallstones. PANCREAS: Unremarkable. SPLEEN: Unremarkable. ADRENAL GLANDS: Unremarkable. KIDNEYS AND URETERS: The kidneys are normal in size and attenuation. The kidneys are somewhat lobulated. No hydronephrosis, hydroureter, or calculi seen. No perinephric stranding. BLADDER: Unremarkable. GASTROINTESTINAL TRACT: Small hiatal hernia. The stomach is decompressed with no gross abnormality. The small bowel is normal in caliber. There is no obstruction. There is no colonic wall thickening or inflammatory change. Gas seen throughout the colon. No free air. ABDOMINAL WALL: No significant hernia is appreciated. LYMPH NODES: Normal. VASCULAR: Normal caliber aorta. Moderate atherosclerotic calcifications. PELVIC VISCERA: The uterus and adnexa are unremarkable. OSSEOUS STRUCTURES: No acute or suspicious osseous abnormality degenerative changes of the spine. Mild degenerative changes of the hips. IMPRESSION: No perforation. Normal bowel gas pattern. Gas seen throughout a nondistended colon. No acute inflammatory changes. Small amount of perihepatic fluid, nonspecific. Distended gallbladder with no radiopaque gallstone seen.
[2017-10-21 15:31] LABS: ABSOLUTE BASOPHIL COUNT 0 /CUMM (0.0-0.2); ABSOLUTE EOSINOPHIL COUNT 0 /CUMM (0.0-0.7); ABSOLUTE GRANULOCYTE CT 8.1 /CUMM (1.4-6.5); ABSOLUTE LYMPH COUNT 5.8 /CUMM (1.2-3.4); ABSOLUTE MONOCYTE COUNT 1.2 /CUMM (0.10-0.60); BASOPHIL % 0.3 % (0.0-2.0); EOSINOPHIL % 0.1 % (0-5); GRANULOCYTE % 53.8 % (42.2-75.2); HEMATOCRIT 29.5 % (37-47); MEAN CORPUSCULAR HGB CONC 33.9 G/DL (33.0-37.0); MEAN CORPUSCULAR VOLUME 88.7 FL (81.0-99.0); MEAN PLATELET VOLUME 8.9 FL (7.4-10.4); PLATELET COUNT 196 /CUMM (130-400); RED BLOOD CELL CT 3.33 /CUMM (4.20-5.40); WHITE BLOOD CELL COUNT 15.1 /CUMM (4.8-10.8)
[2017-10-21 16:00] VITALS: BP 136/80
--- NOTE | 2017-10-21 17:59 | ULTRASOUND REPORT ---
EXAMINATION: US ABDOMEN COMPLETE with Doppler CLINICAL INFORMATION: Right upper quadrant pain. COMPARISON: CT from today TECHNIQUE: Real-time imaging of the abdominal viscera. Doppler evaluation with spectral analysis performed. FINDINGS: PANCREAS: The visualized pancreatic parenchyma is unremarkable. The pancreatic duct is at the upper limit of normal in caliber, measuring 0.3 cm. ABDOMINAL AORTA: The proximal segment is normal in caliber. INFERIOR VENA CAVA: Visualized portions are normal. LIVER: Normal. The liver demonstrates normal size, contour and echogenicity. No focal lesion or intrahepatic biliary duct dilatation. GALLBLADDER: The gallbladder is hydropic, measuring 11 x 5.8 cm. No gallbladder wall thickening. No cholelithiasis. Trace pericholecystic fluid. The main, right, and left portal veins demonstrate normal corrected hepato-petal venous waveforms. The right, middle, and left hepatic veins demonstrates normal hepatofugal venous waveforms. The splenic vein demonstrates normal direction of flow. No evidence for venous thrombosis. The hepatic artery demonstrates normal arterial waveforms. COMMON BILE DUCT: Prominent in caliber measuring 0.7 cm in diameter. RIGHT KIDNEY: Normal. No hydronephrosis. No renal calculi or focal parenchymal lesions. The kidney measures 10.2 cm in maximum dimension. LEFT KIDNEY: Not visible. SPLEEN: Normal. The spleen measures 7 cm in maximum dimension. FREE FLUID: Trace IMPRESSION: 1. Hydropic gallbladder. No gallstones are seen. There is also mild prominence of the common bile duct. 2. Unremarkable appearance of the liver. Unremarkable Doppler evaluation.
[2017-10-21 19:29] LABS: ABSOLUTE BASOPHIL COUNT 0 /CUMM (0.0-0.2); ABSOLUTE EOSINOPHIL COUNT 0.1 /CUMM (0.0-0.7); ABSOLUTE GRANULOCYTE CT 6.5 /CUMM (1.4-6.5); ABSOLUTE LYMPH COUNT 5.7 /CUMM (1.2-3.4); ABSOLUTE MONOCYTE COUNT 1.2 /CUMM (0.10-0.60); BASOPHIL % 0.3 % (0.0-2.0); EOSINOPHIL % 0.4 % (0-5); GRANULOCYTE % 48.3 % (42.2-75.2); HEMATOCRIT 26.8 % (37-47); MEAN CORPUSCULAR HGB 29.8 PG (27.0-31.0); MEAN CORPUSCULAR HGB CONC 33.6 G/DL (33.0-37.0); MEAN CORPUSCULAR VOLUME 88.5 FL (81.0-99.0); MEAN PLATELET VOLUME 7.7 FL (7.4-10.4); PLATELET COUNT 187 /CUMM (130-400); RED BLOOD CELL CT 3.03 /CUMM (4.20-5.40); WHITE BLOOD CELL COUNT 13.4 /CUMM (4.8-10.8)
[2017-10-22] VITALS: BP 136/52
[2017-10-22 00:25] LABS: ABSOLUTE BASOPHIL COUNT 0.1 /CUMM (0.0-0.2); ABSOLUTE EOSINOPHIL COUNT 0.1 /CUMM (0.0-0.7); ABSOLUTE GRANULOCYTE CT 6.3 /CUMM (1.4-6.5); ABSOLUTE LYMPH COUNT 5.5 /CUMM (1.2-3.4); ABSOLUTE MONOCYTE COUNT 1.2 /CUMM (0.10-0.60); BASOPHIL % 0.6 % (0.0-2.0); EOSINOPHIL % 0.7 % (0-5); HEMATOCRIT 25.2 % (37-47); MEAN CORPUSCULAR HGB 29.8 PG (27.0-31.0); MEAN CORPUSCULAR HGB CONC 33.9 G/DL (33.0-37.0); MEAN PLATELET VOLUME 7.8 FL (7.4-10.4); PLATELET COUNT 172 /CUMM (130-400); RED BLOOD CELL CT 2.86 /CUMM (4.20-5.40); WHITE BLOOD CELL COUNT 13.1 /CUMM (4.8-10.8)
[2017-10-22 04:48] LABS: ABSOLUTE BASOPHIL COUNT 0.1 /CUMM (0.0-0.2); ABSOLUTE EOSINOPHIL COUNT 0.2 /CUMM (0.0-0.7); ABSOLUTE GRANULOCYTE CT 5.8 /CUMM (1.4-6.5); ABSOLUTE LYMPH COUNT 6.4 /CUMM (1.2-3.4); ABSOLUTE MONOCYTE COUNT 1.1 /CUMM (0.10-0.60); BASOPHIL % 0.5 % (0.0-2.0); EOSINOPHIL % 1.5 % (0-5); GRANULOCYTE % 42.8 % (42.2-75.2); HEMATOCRIT 27.9 % (37-47); MEAN CORPUSCULAR HGB 29.7 PG (27.0-31.0); MEAN CORPUSCULAR HGB CONC 33.6 G/DL (33.0-37.0); MEAN CORPUSCULAR VOLUME 88.5 FL (81.0-99.0); MEAN PLATELET VOLUME 8.1 FL (7.4-10.4); PLATELET COUNT 194 /CUMM (130-400); RBC DISTRIBUTION WIDTH 15.4 % (11.5-14.5); RED BLOOD CELL CT 3.16 /CUMM (4.20-5.40); WHITE BLOOD CELL COUNT 13.6 /CUMM (4.8-10.8)
[2017-10-22 04:52] LABS: PT 14.2 SEC (9.4-12.5)
[2017-10-22 08:00] VITALS: BP 136/74
--- NOTE | 2017-10-22 09:05 | PN- Resident CRCU ---
Bela FLORES,[facility] 10/22/17 0904: Subjective HPI/CRCU Issues: # Hematemesis 2/2 Grade 2 esophageal varices with stigmata of bleeding, status post variceal band ligation # Acute Blood Loss Anemia # ?? Underlying liver disease # Leukocytosis # History of dementia # Hx of hypertension # History of diabetes # History of hyperlipidemia # History of hypothyroidism # Chronic constipation 24 Hour Events: Patient has dementia and also not able to speak uzbek (croatian speaking), Unable to provide much history but denies any chest or abdominal pain. Objective Vital Signs & I&O Last 8 Hrs of Vitals and I&O: Intake & Output 10/22 1600 Intake Total 797.5 Output Total Balance 797.5 Intake, IV 797.5 Exam General Appearance: well developed/nourished, no apparent distress, awake, comfortable Head: atraumatic, normal appearance Respiratory: chest non-tender, lungs clear Cardiovascular: regular rate/rhythm Gastrointestinal: normal bowel sounds, soft, non-tender Extremities: normal inspection, no edema Current Medications: Current Medications Sig/Atul Start time Last Medication Dose Route Stop Time Status Admin Acetaminophen 1,000 MG ONCE ONE 10/21 2344 DC 10/21 N/A 1 UNIT IV 10/21 235 2347 Acetaminophen 650 MG Q6P PRN 10/22 0715 AC PO Ceftriaxone Sodium 1,000 MG DAILY 10/22 899 AC 10/22 IV 0853 Dextrose/Sodium 1,000 ML Q13H 10/21 1914 AC 10/22 Chloride IV 0846 Divalproex Sodium 250 MG BID 10/21 899 DC PO Donepezil HCl 10 MG DAILY 10/21 899 AC 10/22 PO 0851 Insulin Detemir 30 UNITS QPM 10/22 2099 AC SC Insulin Detemir 15 UNITS DAILY 10/22 899 AC SC Insulin Detemir 30 UNITS QPM 10/21 2099 DC SC Insulin Detemir 20 UNITS ONCE ONE 10/21 2099 DC 10/21 SC 10/21 Insulin Human Regular 0 Q6 10/21 1200 AC 10/22 SC 114 Levothyroxine Sodium 37.5 MCG ONCE ONE 10/21 1914 DC 10/21 IV 10/21 Levothyroxine Sodium 0.075 MG DAILY 10/21 899 AC 10/22 PO 0852 Magnesium Oxide 400 MG BID 05/04 2100 AC PO Octreotide Acetate 500 MCG Q20H 10/21 1400 AC 10/22 Sodium Chloride 500 ML IV 0852 Pantoprazole Sodium 40 MG BID 10/21 0900 AC / IV 0853 Pravastatin Sodium 10 MG DAILY 10/21 0900 AC 10/22 PO 0852 Sodium Chloride 1,000 ML Q13H / 0900 DC / IV 10/22 1059 1030 Valproate Sodium 250 MG Q12 / 2100 CAN Sodium Chloride 50 ML IV Valproate Sodium 250 MG Q12H 10/21 2100 AC 10/22 Sodium Chloride 50 ML IV 0847 Impression/Plan Impression/Problem List Impression: This is a 82-year-old female with past medical history significant for osteoarthritis, constipation, depression, Alzheimer's dementia, diabetes mellitus type 2, hypothyroidism, hypertension, generalized weakness, gait instability, hyperlipidemia, 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 Patient has history of Alzheimer's dementia, residing at [facility] care [facility] since June 2017. 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 Patient is admitetd to ICU for the managment of following issues; # Hematemesis 2/2 Grade 2 esophageal varices with stigmata of bleeding, status post variceal band ligation # Acute Blood Loss Anemia # ?? Underlying liver disease # Leukocytosis # History of dementia # Hx of hypertension # History of diabetes # History of hyperlipidemia # History of hypothyroidism # Chronic constipation 1. Hematemesis 2/2 Grade 2 esophageal varices with stigmata of bleeding, status post variceal band ligation; Patient was brought in from [facility] for evaluation of multiple episodes of hematemesis overnight. Stool guaiac was negative. Denied any use of [id number] analgesics, aspirin, anticoagulants, antiplatelet agents or alcohol abuse. No prior history of GI bleeds. Patient had stat EGD done showing great toe is visual versus with stigmata of bleeding status post varicieal band ligation. No history of liver disease, coagulation disorders. Patient also reported abdominal pain after the EGD, CT abdomen was done to rule out any perforation which was negative. Patient was never admitted in the past for any GI bleed. H&H 8.6/26.5 at the time of admission(Baseline Hb 11.5) stable s/p 1 unit PRBCs. * Continue monitoring in ICU * Continue to monitor H&H every 8 hours 24 hours. Currently stable at 8.7/ 25.5. Goal hemoglobin above 7. * Monitor for any active signs of GI bleed. * Continue octreotide drip x 3 days. * Continue Protonix IV 40 twice daily * Empiric Ceftriaxone x 3 days. Day 2 * We'll start the patient on clear liquid diet. * Avoid NSAIDs. * Follow-up Gastro recommendations 2. ?? underlying liver disease INR 4.5, hypoalbuminemia 3.1. Patient also has hyponatremia. Given coagulopathy hypoalbuminemia and hyponatremia, there is possibility for underlying liver disease. However patient has no known history of any hepatitis , autoimmune disease, cirrhosis of liver. RUQ Dupplex US is negative. Hepatitis panel negative. * Alpha-fetoprotein pending * Requested records from [facility] 3. Hyponatremia; Resolved Sodium 128 at the time of admission. Likely from hypovolemic hyponatremia from GI blood loss. TSH, Free T4 Normal. * Continue to monitor sodium. 4. Leukocytosis; Resolved WBC 16.6 at the time of admission, no bandemia, no fever, chills. No focal consolidation was found on CXR. UA negative. Leukocytosis most likely reactive 2/2 to anemia. * Monitor for fever, chills * Monitor WBC count 5. Diabetes mellitus; * Holding home medication metformin * ACCU-checks * Continue Levemir 15 units a.m. and 30 units nighttime * NovoLog sliding scale 4. Osteoarthritis continue alendronate every Wednesday 5. Depression continue divalproex 6. Dementia continue donepezil 10 mg daily 7. Hypothyroidism continue levothyroxine 75 g daily 8. Hypertension, takes lisinopril 10 daily hold lisinopril for now given GI bleed 9. Hyperlipidemia continue pravastatin 10 mg daily 10. Chronic constipation Patient is full code DVT prophylaxis alps only given GI bleed Problem List: 1. Anemia due to blood loss, acute 2. Leukocytosis 3. Upper GI bleed Pain Ratin Pain Location: NA Pain Goal: Remain pain free Pain Plan: Pain pathway Tomorrow's Labs & Rationales: CBC ICU bundle Plan DVT/Prophylaxis: mechanical Martita FLORES,[facility] 10/22/17 1300: Attending MD Review Statement Attending Sign Off Attending Cosign Statement: I have: examined this patient, reviewed aval EMR data, personally reviewd images, discussd w/resident/PA/PC SUPPORT SPECIALIST, discussed mgmt plan w/liana, discussed mgmt plan w/CM, discussed mgmt plan w/pt, agreed w/resident/PA/PC SUPPORT SPECIALIST, amended to note. 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 Issues CARMEL bleed, egd did show varices pt has prob mcguire / now stable on octreotide drip GI is following Dementia Hyponatremia Leukocytosis DM HIstory of fall OA/Depression/HTN/JHyperlipedemia REC cont current meds GI to see cont octreotide Diet per gi will follow FOllow sugars
[2017-10-22 11:55] LABS: ABSOLUTE BASOPHIL COUNT 0.1 /CUMM (0.0-0.2); ABSOLUTE EOSINOPHIL COUNT 0.3 /CUMM (0.0-0.7); ABSOLUTE GRANULOCYTE CT 4.2 /CUMM (1.4-6.5); ABSOLUTE LYMPH COUNT 3.6 /CUMM (1.2-3.4); ABSOLUTE MONOCYTE COUNT 0.9 /CUMM (0.10-0.60); BASOPHIL % 0.8 % (0.0-2.0); GRANULOCYTE % 46.2 % (42.2-75.2); HEMATOCRIT 25.5 % (37-47); MEAN CORPUSCULAR HGB 29.8 PG (27.0-31.0); MEAN CORPUSCULAR HGB CONC 34.2 G/DL (33.0-37.0); MEAN CORPUSCULAR VOLUME 87.3 FL (81.0-99.0); MEAN PLATELET VOLUME 7.5 FL (7.4-10.4); PLATELET COUNT 159 /CUMM (130-400); RBC DISTRIBUTION WIDTH 15.1 % (11.5-14.5); RED BLOOD CELL CT 2.92 /CUMM (4.20-5.40)
--- NOTE | 2017-10-22 15:46 | Transfer of Care Summary ---
Hospital Course Course Hospital Course: This is a 82-year-old female with past medical history significant for osteoarthritis, constipation, depression, Alzheimer's dementia, diabetes mellitus type 2, hypothyroidism, hypertension, generalized weakness, gait instability, hyperlipidemia, [place] palsy with no residual deficits, brought in by ambulance from [facility] to [facility] emergency room for multiple episodes of hematemesis last night. Patient has history of Alzheimer's dementia, residing at [facility] care [facility] since June 2017. 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 Labs at the time of admission were; WBC 16.6, hemoglobin 8.6 and hematocrit 26, platelets 235 Sodium 128, potassium 4.7, BUN 18 and creatinine 1, glucose 225 INR 1.45 LFTs 0.5, 53, 39, 61 Patient was admitted to ICU for the managment of following issues; # Hematemesis 2/2 Grade 2 esophageal varices with stigmata of bleeding, status post variceal band ligation # Acute Blood Loss Anemia # ?? Underlying liver disease # Hyponatremia - Resolved # Leukocytosis # History of dementia # Hx of hypertension # History of diabetes # History of hyperlipidemia # History of hypothyroidism # Chronic constipation Patient was brought in from [facility] for evaluation of multiple episodes of hematemesis overnight. Stool guaiac was negative. Denied any use of [id number] analgesics, aspirin, anticoagulants, antiplatelet agents or alcohol abuse. No prior history of GI bleeds. Patient had stat EGD done showing grade 2 esophageal varices with stigmata of bleeding status post varicieal band ligation. No history of liver disease, coagulation disorders. Patient also reported abdominal pain after the EGD, CT abdomen was done to rule out any perforation which was negative. Patient was never admitted in the past for any GI bleed. H&H 8.6/26.5 at the time of admission(Baseline Hb 11.5) stable s/p 1 unit PRBCs. CBC was initially monitored Q 4 x 24 hrs, next day changed to Q12. Patient was also kept NPO overnight after the EGD and started on clear liquids in the morning. Patient also had elevated INR of 4.5 and hypoalbuminemia of 3.1. Patient also had hyponatremia. Given coagulopathy hypoalbuminemia and hyponatremia, there is possibility for underlying liver disease. However patient has no known history of any hepatitis, autoimmune disease, cirrhosis of liver. RUQ Dupplex US is negative. Hepatitis panel also negative. Likely AGUIRRE. She also presented with a WBC count of 16.6, with negative chest x-ray and UA, likely reactive to acute blood loss. Trending down. Assessment/Plan: Plan; * Repeat CBC and BEP in am. * Goal hemoglobin above 7. * Monitor for any active signs of GI bleed. * Continue octreotide drip x 3 days. Day 2 * Continue Protonix IV 40 twice daily. * Ceftriaxone x 3 days. Day 2 * On Full liquid diet, advance per GI. * Avoid NSAIDs * Alpha Fetoprotein pending. * Follow-up Gastro recommendations * Holding home medication metformin, Levemir 15 units a.m. and 30 units nighttime continued with NovoLog sliding scale * ACCU-checks. 3. Hyponatremia; Resolved Sodium 128 at the time of admission. Likely from hypovolemic hyponatremia from GI blood loss. TSH, Free T4 Normal. * Continue to monitor sodium. 4. Leukocytosis; Resolved WBC 16.6 at the time of admission, no bandemia, no fever, chills. No focal consolidation was found on CXR. UA negative. Leukocytosis most likely reactive 2/2 to anemia. * 5. Diabetes mellitus; * Holding home medication metformin * ACCU-checks * Continue Levemir 15 units a.m. and 30 units nighttime * NovoLog sliding scale Assessment/Plan: Plan; * Repeat CBC and BEP in am. * Goal hemoglobin above 7. * Monitor for any active signs of GI bleed. * Continue octreotide drip x 3 days. Day 2 * Continue Protonix IV 40 twice daily. * Ceftriaxone x 3 days. Day 2 * On Full liquid diet, advance per GI. * Avoid NSAIDs * Alpha Fetoprotein pending. * Follow-up Gastro recommendations * Holding home medication metformin, Levemir 15 units a.m. and 30 units nighttime continued with NovoLog sliding scale * ACCU-checks.
[2017-10-22 16:00] VITALS: BP 146/43
--- NOTE | 2017-10-22 16:10 | PN- Gastroenterology ---
Assessment/Plan GI Assessment/Recommendations: Upper GI bleed secondary to esophageal varices, with probable underlying cirrhosis (negative viral hepatitis serologies, JACK). No evidence of rebleeding status post variceal ligation. Vital signs stable, hemoglobin stable. No encephalopathy, fever or leukocytosis. Mild coagulopathy has resolved. Alpha- fetoprotein pending. Recommendations: * Continue octreotide 50 mcg/m * Clear liquid diet * CBC twice a day; maintain hemoglobin greater than 7 * Agree with transfer out of ICU Subjective Subjective: The patient cannot relay history. According to daughter, and RN, no apparent abdominal pain, nausea, vomiting, and no passage of stool, blood per rectum, or melena. Review of Systems: Unobtainable Objective Vital Signs and I&Os Vital Signs Date Time Temp Pulse Resp B/P B/P Pulse O2 O2 Flow FiO2 Mean Ox Delivery Rate 10/22 1200 93 Room Air 10/22 0800 94 Room Air 10/22 0800 97.8 80 20 136/74 94 Room Air 10/22 0400 95 Nasal 1.0L Cannula 10/22 0000 94 Nasal 2.0L Cannula 10/22 0000 99.0 80 20 136/52 94 Nasal 2.0L Cannula 10/21 2000 91 Nasal 2.0L Cannula Intake & Output 10/22 1600 10/22 0400 10/21 1600 10/21 0400 10/20 1600 10/20 0400 Intake Total 1588.5 800 2850 Output Total 352 Balance 1588.5 800 2498 Intake, Blood 350 Product Intake, IV 1588.5 800 2500 Intake, Oral 0 0 Number 0 1 2 Bowel Movements Output, Stool 2 Output, Urine 350 Patient 149 lb 160 lb Weight Weight Bed scale Measurement Method Physical Exam: Arousable. Sclera anicteric. No oropharyngeal lesion. Abdomen soft, nondistended, nontender. Extremities without edema. Current Medications: Current Medications Sig/Atul Start time Last Medication Dose Route Stop Time Status Admin Acetaminophen 1,000 MG ONCE ONE 10/21 2344 DC 10/21 N/A 1 UNIT IV 10/21 2359 2347 Acetaminophen 650 MG Q6P PRN 10/22 0715 AC PO Ceftriaxone Sodium 1,000 MG DAILY 10/22 09 AC 10/22 IV 0853 Dextrose/Sodium 1,000 ML Q13H 10/21 1915 AC 10/22 Chloride IV 0846 Divalproex Sodium 250 MG BID 10/21 899 DC PO Donepezil HCl 10 MG DAILY 10/21 899 AC 10/22 PO 0851 Insulin Detemir 30 UNITS QPM 10/22 2099 AC SC Insulin Detemir 15 UNITS DAILY 10/22 899 AC SC Insulin Detemir 30 UNITS QPM 10/21 2100 DC SC Insulin Detemir 20 UNITS ONCE ONE 10/21 2099 DC 10/21 SC 10/21 Insulin Human Regular 0 Q6 10/21 1200 AC 10/22 SC 1142 Levothyroxine Sodium 37.5 MCG ONCE ONE 10/21 1914 DC 10/21 IV 10/21 Levothyroxine Sodium 0.075 MG DAILY 10/21 09 AC 10/22 PO 0852 Magnesium Oxide 400 MG BID 10/22 2099 AC PO Octreotide Acetate 500 MCG Q20H 10/21 1400 AC 10/22 Sodium Chloride 500 ML IV 0852 Pantoprazole Sodium 40 MG BID 10/21 09 AC 10/22 IV 0853 Pravastatin Sodium 10 MG DAILY 10/21 09 AC 10/22 PO 0852 Sodium Chloride 1,000 ML Q13H 10/21 09 DC 10/21 IV 10/22 1059 1030 Valproate Sodium 250 MG Q12 10/21 2099 CAN Sodium Chloride 50 ML IV Valproate Sodium 250 MG Q12H 10/21 2100 AC 10/22 Sodium Chloride 50 ML IV 0847 Results Pertinent Lab Results: Laboratory Tests 10/22 10/22 1136 0340 Chemistry Sodium (137 - 145 mmol/L) 140 Potassium (3.5 - 5.1 mmol/L) 4.2 Chloride (98 - 107 mmol/L) 102 Carbon Dioxide (22 - 30 mmol/L) 27 Anion Gap (5 - 16) 10 BUN (7 - 17 mg/dL) 19 H Creatinine (0.5 - 1.0 mg/dL) 0.6 Estimated GFR (>60 ml/min) > 60 Glucose (65 - 99 mg/dL) 80 Calcium (8.4 - 10.2 mg/dL) 8.4 Phosphorus (2.5 - 4.5 mg/dL) 4.1 Magnesium (1.6 - 2.3 mg/dL) 1.8 Total Bilirubin (0.2 - 1.3 mg/dL) 0.6 AST (14 - 36 U/L) 111 H ALT (9 - 52 U/L) 84 H Albumin (3.5 - 5.0 g/dL) 3.3 L TSH (0.270 - 4.200 uIU/mL) 0.515 Free T4 (0.85 - 1.93 ng/dL) 1.54 Coagulation PT (9.4 - 12.5 SEC) 14.2 H INR (0.90 - 1.19) 1.30 H Hematology CBC w Diff NO MAN DIFF REQ MAN DIFF ORDERED WBC (4.8 - 10.8 /CUMM) 9.0 13.6 H RBC (4.20 - 5.40 /CUMM) 2.92 L 3.16 L Hgb (12.0 - 16.0 G/DL) 8.7 L 9.4 L Hct (37 - 47 %) 25.5 L 27.9 L MCV (81.0 - 99.0 FL) 87.3 88.5 MCH (27.0 - 31.0 PG) 29.8 29.7 MCHC (33.0 - 37.0 G/DL) 34.2 33.6 RDW (11.5 - 14.5 %) 15.1 H 15.4 H Plt Count (130 - 400 /CUMM) 159 194 MPV (7.4 - 10.4 FL) 7.5 8.1 Gran % (42.2 - 75.2 %) 46.2 42.8 Lymphocytes % (20.5 - 51.1 %) 39.9 47.0 Monocytes % (1.7 - 9.3 %) 10.1 H 8.2 Eosinophils % (0 - 5 %) 3.0 1.5 Basophils % (0.0 - 2.0 %) 0.8 0.5 Absolute Granulocytes (1.4 - 6.5 /CUMM) 4.2 5.8 Segmented Neutrophils (42.2 - 75.2 %) 77 H Absolute Lymphocytes (1.2 - 3.4 /CUMM) 3.6 H 6.4 H Lymphocytes (20.5 - 51.1 %) 49 Monocytes (1.7 - 9.3 %) 3 Absolute Monocytes (0.10 - 0.60 /CUMM) 0.9 H 1.1 H Eosinophils (0 - 5.0 %) 4 Absolute Eosinophils (0.0 - 0.7 /CUMM) 0.3 0.2 Absolute Basophils (0.0 - 0.2 /CUMM) 0.1 0.1 Platelet Estimate (ADEQUATE) ADEQUATE Polychromasia 1+ Poikilocytosis 1+ Basophilic Stippling SLIGHT Ovalocytes 1+ Other Body Source Fld Total RBCs Counted (%) 100 10/22 10/21 0005 1845 Hematology CBC w Diff NO MAN DIFF REQ NO MAN DIFF REQ WBC (4.8 - 10.8 /CUMM) 13.1 H 13.4 H RBC (4.20 - 5.40 /CUMM) 2.86 L 3.03 L Hgb (12.0 - 16.0 G/DL) 8.5 L 9.0 L Hct (37 - 47 %) 25.2 L 26.8 L MCV (81.0 - 99.0 FL) 88.0 88.5 MCH (27.0 - 31.0 PG) 29.8 29.8 MCHC (33.0 - 37.0 G/DL) 33.9 33.6 RDW (11.5 - 14.5 %) 15.0 H 15.0 H Plt Count (130 - 400 /CUMM) 172 187 MPV (7.4 - 10.4 FL) 7.8 7.7 Gran % (42.2 - 75.2 %) 48.0 48.3 Lymphocytes % (20.5 - 51.1 %) 41.7 42.4 Monocytes % (1.7 - 9.3 %) 9.0 8.6 Eosinophils % (0 - 5 %) 0.7 0.4 Basophils % (0.0 - 2.0 %) 0.6 0.3 Absolute Granulocytes (1.4 - 6.5 /CUMM) 6.3 6.5 Absolute Lymphocytes (1.2 - 3.4 /CUMM) 5.5 H 5.7 H Absolute Monocytes (0.10 - 0.60 /CUMM) 1.2 H 1.2 H Absolute Eosinophils (0.0 - 0.7 /CUMM) 0.1 0.1 Absolute Basophils (0.0 - 0.2 /CUMM) 0.1 0 10/21 10/21 10/21 1300 1300 1257 Chemistry Sodium (137 - 145 mmol/L) 133 L Potassium (3.5 - 5.1 mmol/L) 4.8 Chloride (98 - 107 mmol/L) 97 L Carbon Dioxide (22 - 30 mmol/L) 25 Anion Gap (5 - 16) 11 BUN (7 - 17 mg/dL) 26 H Creatinine (0.5 - 1.0 mg/dL) 0.6 Estimated GFR (>60 ml/min) > 60 Glucose (65 - 99 mg/dL) 152 H Calcium (8.4 - 10.2 mg/dL) 7.7 L Phosphorus (2.5 - 4.5 mg/dL) 3.6 Magnesium (1.6 - 2.3 mg/dL) 1.6 Total Bilirubin (0.2 - 1.3 mg/dL) 0.5 AST (14 - 36 U/L) 86 H ALT (9 - 52 U/L) 72 H Albumin (3.5 - 5.0 g/dL) 3.2 L Triglycerides (<150 mg/dL) 120 Cancelled Cholesterol (<200 MG/DL) 118 Cancelled LDL Cholesterol, Calc (65 - 129 mg/dL) 56 L Cancelled HDL Cholesterol (40 - 60 mg/dL) 38 L Cancelled Cholesterol/HDL Ratio (0.00 - 4.23 %) 3 Cancelled Hematology CBC w Diff NO MAN DIFF REQ WBC (4.8 - 10.8 /CUMM) Cancelled 15.1 H RBC (4.20 - 5.40 /CUMM) Cancelled 3.33 L Hgb (12.0 - 16.0 G/DL) Cancelled 10.0 L Hct (37 - 47 %) Cancelled 29.5 L MCV (81.0 - 99.0 FL) Cancelled 88.7 MCH (27.0 - 31.0 PG) Cancelled 30.0 MCHC (33.0 - 37.0 G/DL) Cancelled 33.9 RDW (11.5 - 14.5 %) Cancelled 15.0 H Plt Count (130 - 400 /CUMM) Cancelled 196 MPV (7.4 - 10.4 FL) Cancelled 8.9 Gran % (42.2 - 75.2 %) 53.8 Lymphocytes % (20.5 - 51.1 %) 38.1 Monocytes % (1.7 - 9.3 %) 7.7 Eosinophils % (0 - 5 %) 0.1 Basophils % (0.0 - 2.0 %) 0.3 Absolute Granulocytes (1.4 - 6.5 /CUMM) 8.1 H Absolute Lymphocytes (1.2 - 3.4 /CUMM) 5.8 H Absolute Monocytes (0.10 - 0.60 /CUMM) 1.2 H Absolute Eosinophils (0.0 - 0.7 /CUMM) 0 Absolute Basophils (0.0 - 0.2 /CUMM) 0 Serology Hepatitis A IgM Ab (NONREACTIVE) NONREACTIVE Hep Bs Antigen (NONREACTIVE) NONREACTIVE Hep B Core IgM Ab Conf (NONREACTIVE) NONREACTIVE Hepatitis C Antibody (NONREACTIVE) NONREACTIVE 10/21 10/21 1227 UNK Immunology Anti-Smooth Muscle Ab Cancelled Serology Hepatitis A IgM Ab Cancelled Hep Bs Antigen Cancelled Hep B Core IgM Ab Conf Cancelled Hepatitis C Antibody Cancelled 10/21 10/21 0640 0405 Chemistry Sodium (137 - 145 mmol/L) 128 L Potassium (3.5 - 5.1 mmol/L) 4.7 Chloride (98 - 107 mmol/L) 93 L Carbon Dioxide (22 - 30 mmol/L) 22 Anion Gap (5 - 16) 13 BUN (7 - 17 mg/dL) 18 H Creatinine (0.5 - 1.0 mg/dL) 1.0 Estimated GFR (>60 ml/min) 53 L BUN/Creatinine Ratio (7 - 25 %) 18.0 Glucose (65 - 99 mg/dL) 225 H Serum Osmolality (285 - 295 MOSM/KG) 282 L Calcium (8.4 - 10.2 mg/dL) 8.6 Total Bilirubin (0.2 - 1.3 mg/dL) 0.5 AST (14 - 36 U/L) 53 H ALT (9 - 52 U/L) 39 Alkaline Phosphatase (<127 U/L) 61 Total Protein (6.3 - 8.2 g/dL) 6.0 L Albumin (3.5 - 5.0 g/dL) 3.1 L Globulin (1.9 - 4.2 gm/dL) 2.9 Albumin/Globulin Ratio (1.1 - 2.2 %) 1.1 Vitamin B12 (239 - 931 pg/mL) 376 Folate (2.76 - 20.0 ng/mL) > 20.0 H TSH (0.270 - 4.200 uIU/mL) 6.440 H Free T4 (0.85 - 1.93 ng/dL) 1.78 Coagulation PT (9.4 - 12.5 SEC) 15.9 H INR (0.90 - 1.19) 1.45 H Hematology CBC w Diff MAN DIFF ORDERED WBC (4.8 - 10.8 /CUMM) 16.6 H RBC (4.20 - 5.40 /CUMM) 2.96 L Hgb (12.0 - 16.0 G/DL) 8.6 L Hct (37 - 47 %) 26.5 L MCV (81.0 - 99.0 FL) 89.6 MCH (27.0 - 31.0 PG) 29.1 MCHC (33.0 - 37.0 G/DL) 32.4 L RDW (11.5 - 14.5 %) 15.3 H Plt Count (130 - 400 /CUMM) 235 MPV (7.4 - 10.4 FL) 8.0 Gran % (42.2 - 75.2 %) 38.8 L Lymphocytes % (20.5 - 51.1 %) 50.7 Monocytes % (1.7 - 9.3 %) 9.3 Eosinophils % (0 - 5 %) 1.0 Basophils % (0.0 - 2.0 %) 0.2 Absolute Granulocytes (1.4 - 6.5 /CUMM) 6.4 Segmented Neutrophils (42.2 - 75.2 %) 36 L Band Neutrophils (0.0 - 5.0 %) 2 Absolute Lymphocytes (1.2 - 3.4 /CUMM) 8.4 H Lymphocytes (20.5 - 51.1 %) 54 H Monocytes (1.7 - 9.3 %) 5 Absolute Monocytes (0.10 - 0.60 /CUMM) 1.5 H Eosinophils (0 - 5.0 %) 2 Absolute Eosinophils (0.0 - 0.7 /CUMM) 0.2 Basophils (0.0 - 2.0 %) 1 Absolute Basophils (0.0 - 0.2 /CUMM) 0 Platelet Estimate (ADEQUATE) ADEQUATE Normocytic RBCs VERIFIED Normochromic RBCs VERIFIED Stomatocytes FEW Toxicology Valproic Acid (50 - 120 ug/mL) 50.9 Urines Urinalysis HEAVY H Urine Color (YEL,AMB,STR) YEL Urine Clarity (CLEAR) CLDY H Urine pH (5.0 - 8.0) 6.0 Ur Specific Cunningham (1.001 - 1.035) >= 1.030 Urine Protein (NEG,<30 MG/DL) 100 H Urine Ketones (NEG) 15 H Urine Nitrite (NEG) NEG Urine Bilirubin (NEG) NEG Urine Urobilinogen (0.1 - 1.0 EU/dl) 0.2 Ur Leukocyte Esterase (NEG) NEG Ur Microscopic SEDIMENT EXAMINED Urine RBC (0 - 5 /HPF) 5-10 H Urine WBC (0 - 2 /HPF) 5-10 H Ur Epithelial Cells (NONE,FEW) MOD H Urine Bacteria (NEG/NONE) FEW H Hyaline Casts (0/LPF) 1-3 H Urine Mucus (FEW,NONE) MOD H Urine Hemoglobin (NEG) TRACE-LYSED Urine Glucose (N MG/DL) 100 H 10/21 05 0400 0400 Chemistry Alpha Fetoprotein Pending Immunology JACK Titer ND Anti-Nuclear Antibody (NEG,1:40) NEG 1:40 IFA ASSAY Anti-Smooth Muscle Ab Pending
[2017-10-22 20:41] LABS: ABSOLUTE BASOPHIL COUNT 0 /CUMM (0.0-0.2); ABSOLUTE EOSINOPHIL COUNT 0.2 /CUMM (0.0-0.7); ABSOLUTE GRANULOCYTE CT 5.1 /CUMM (1.4-6.5); ABSOLUTE LYMPH COUNT 3.6 /CUMM (1.2-3.4); ABSOLUTE MONOCYTE COUNT 0.9 /CUMM (0.10-0.60); BASOPHIL % 0.5 % (0.0-2.0); EOSINOPHIL % 2.3 % (0-5); HEMATOCRIT 24.8 % (37-47); MEAN CORPUSCULAR HGB 29.4 PG (27.0-31.0); MEAN CORPUSCULAR HGB CONC 33.1 G/DL (33.0-37.0); MEAN CORPUSCULAR VOLUME 88.9 FL (81.0-99.0); MEAN PLATELET VOLUME 7.3 FL (7.4-10.4); PLATELET COUNT 158 /CUMM (130-400); RBC DISTRIBUTION WIDTH 15.2 % (11.5-14.5); RED BLOOD CELL CT 2.79 /CUMM (4.20-5.40); WHITE BLOOD CELL COUNT 9.9 /CUMM (4.8-10.8)
[2017-10-22 20:43] LABS: GRANULOCYTE % 51.6 % (42.2-75.2)
[2017-10-23] VITALS: BP 148/50
--- NOTE | 2017-10-23 02:11 | RADIOLOGY REPORT ---
EXAMINATION: XR PORTABLE ABDOMEN CLINICAL INFORMATION: Epigastric pain, recent EGD COMPARISON: CT 10/21/2017 TECHNIQUE: AP supine view of the abdomen. FINDINGS: Assessment for free air is significantly limited with supine positioning; no secondary findings of free air are seen. The bowel gas pattern is nonobstructive. Stool is noted in the rectum. Vascular calcification is present. Small calcifications in the pelvis are favored to reflect phleboliths. There are mild degenerative changes of the hips. IMPRESSION: No acute findings identified.
[2017-10-23 04:00] VITALS: BP 138/60
[2017-10-23 05:46] LABS: ABSOLUTE BASOPHIL COUNT 0.1 /CUMM (0.0-0.2); ABSOLUTE EOSINOPHIL COUNT 0.3 /CUMM (0.0-0.7); ABSOLUTE GRANULOCYTE CT 6.3 /CUMM (1.4-6.5); ABSOLUTE LYMPH COUNT 8.9 /CUMM (1.2-3.4); ABSOLUTE MONOCYTE COUNT 1.5 /CUMM (0.10-0.60); BASOPHIL % 0.3 % (0.0-2.0); EOSINOPHIL % 1.9 % (0-5); HEMATOCRIT 25.8 % (37-47); MEAN CORPUSCULAR HGB 29.7 PG (27.0-31.0); MEAN CORPUSCULAR HGB CONC 33.1 G/DL (33.0-37.0); MEAN CORPUSCULAR VOLUME 89.8 FL (81.0-99.0); MEAN PLATELET VOLUME 7.6 FL (7.4-10.4); PLATELET COUNT 203 /CUMM (130-400); RED BLOOD CELL CT 2.87 /CUMM (4.20-5.40)
[2017-10-23 08:00] VITALS: BP 130/60
--- NOTE | 2017-10-23 08:15 | PN- Resident CRCU ---
Gaurang David 10/23/17 0814: Subjective HPI/CRCU Issues: # Hematemesis 2/2 Grade 2 esophageal varices with stigmata of bleeding, status post variceal band ligation # Acute Blood Loss Anemia # ?? Underlying liver disease- NALD # Leukocytosis #Transaminitis #COAGULOPATHY # History of dementia # Hx of hypertension # History of diabetes # History of hyperlipidemia # History of hypothyroidism # Chronic constipation 24 Hour Events: Patient was seen and examined this morning. She is alert awake, oriented to place Patient is Belgian-speaking and she has Alzheimer's dementia, unable to provide any history. Denies any nausea, vomiting, hematemesis, melena, hematochezia Reports abdominal discomfort. Vitals afebrile, MAXIMUM TEMPERATURE 100.1, respiratory rate 20, heart rate 82, blood pressure 138/60, saturating at 92 on room air Hemoglobin remained stable 8.5 and 25 Transaminitis 238, 193 Objective Vital Signs & I&O Last 8 Hrs of Vitals and I&O: Vital Signs Date Time Temp Pulse Resp B/P B/P Pulse O2 O2 Flow FiO2 Mean Ox Delivery Rate 10/23 0400 99.1 82 20 138/60 / 0200 100.1 05/ 0000 92 Room Air 05/ 0000 99.7 80 22 148/50 92 Room Air 10/22 1600 97.4 78 23 146/43 Room Air / 1200 93 Room Air Intake & Output 10/23 1600 10/23 0800 10/23 0000 Intake Total 900 1090 Output Total Balance 900 1090 Intake, IV 800 850 Intake, Oral 100 240 Number 0 Bowel Movements Patient 67.727 kg Weight Intake & Output 10/23 1600 Intake Total Output Total Balance Patient 67.727 kg Weight Exam General Appearance: well developed/nourished, no apparent distress, alert, awake Other Physical Findings: Head: atraumatic, normal appearance Respiratory: chest non-tender, lungs clear Cardiovascular: regular rate/rhythm Gastrointestinal: normal bowel sounds, soft, non-tender Extremities: normal inspection, no edema Current Medications: Current Medications Sig/Atul Start time Last Medication Dose Route Stop Time Status Admin Acetaminophen 650 MG Q6P PRN 10/21 0815 AC PO Ceftriaxone Sodium 1,000 MG DAILY 10/22 0900 AC 10/23 IV 10/23 1200 0928 Dextrose/Sodium 1,000 ML Q13H 10/21 1915 DC 05/04 Chloride IV 2344 Divalproex Sodium 250 MG BID 10/23 2100 AC PO Donepezil HCl 10 MG DAILY 10/21 0900 AC 10/23 PO 0903 Insulin Aspart 0 TIDAC 10/23 0845 AC SC Insulin Detemir 15 UNITS QPM 10/23 2100 AC SC Insulin Detemir 30 UNITS DAILY 10/23 0900 DC SC Insulin Detemir 15 UNITS DAILY 10/23 0900 AC 10/23 SC 0911 Insulin Detemir 30 UNITS QPM 10/22 2100 DC 10/22 SC 2051 Insulin Detemir 15 UNITS DAILY 10/22 0900 DC SC Insulin Human Regular 1 UNITS .STK-MED ONE 10/22 2341 DC IV 10/22 2342 Insulin Human Regular 4 UNITS .STK-MED ONE 10/22 1808 DC IV 10/22 1809 Insulin Human Regular 2 UNITS .STK-MED ONE 10/22 1140 DC IV 10/22 1141 Insulin Human Regular 0 Q6 10/21 1200 DC 10/22 SC 2345 Levothyroxine Sodium 0.075 MG DAILY 10/21 0900 AC 10/23 PO 0903 Magnesium Oxide 400 MG BID 10/22 2100 AC 10/23 PO 0903 Octreotide Acetate 500 MCG Q20H / 1400 AC 10/23 Sodium Chloride 500 ML IV 0535 Pantoprazole Sodium 40 MG BID 10/21 0900 AC 10/23 IV 0905 Potassium Chloride 20 MEQ ONCE ONE 10/23 0945 DC 10/23 PO 05 0946 0945 Potassium Chloride 40 MEQ ONCE ONE 10/23 0730 DC PO 10/23 0731 Pravastatin Sodium 10 MG DAILY 10/21 0900 AC 10/23 PO 0903 Valproate Sodium 250 MG Q12H 10/21 2100 DC 10/23 Sodium Chloride 50 ML IV 0910 Impression/Plan Impression/Problem List Impression: This is a 82-year-old female with past medical history significant for osteoarthritis, constipation, depression, Alzheimer's dementia, diabetes mellitus type 2, hypothyroidism, hypertension, generalized weakness, gait instability, hyperlipidemia, [place] palsy with no residual deficits, brought in by ambulance from [facility] to [facility] emergency room for multiple episodes of hematemesis. Patient has history of Alzheimer's dementia, residing at extended care facility [facility] since June 2017. Patient usually follows container filler [facility] and PCP Dr Arriaga. Patient is admitetd to ICU for the managment of following issues; # Hematemesis 2/2 Grade 2 esophageal varices with stigmata of bleeding, status post variceal band ligation # Acute Blood Loss Anemia # ?? Underlying liver disease # Leukocytosis # History of dementia # Hx of hypertension # History of diabetes # History of hyperlipidemia # History of hypothyroidism # Chronic constipation 1. Hematemesis 2/2 Grade 2 esophageal varices with stigmata of bleeding, status post variceal band ligation; Patient was brought in from extended care facility for evaluation of multiple episodes of hematemesis . Stool guaiac was negative. Denied any use of over-the- counter analgesics, aspirin, anticoagulants, antiplatelet agents or alcohol abuse. No prior history of GI bleeds. Patient had stat EGD done showing Grade 2 esophageal varices with stigmata of bleeding, status post variceal band ligation. No history of liver disease, coagulation disorders. Patient also reported abdominal pain after the EGD, CT abdomen was done to rule out any perforation which was negative. Patient was never admitted in the past for any GI bleed. H&H 8.6/26.5 at the time of admission(Baseline Hb 11.5) stable s/p 1 unit PRBCs. * Continue to monitor H&H every q12 hrs. * Currently stable at 8.5/25.8. * Goal hemoglobin above 7. * Monitor for any active signs of GI bleed. * Continue octreotide drip x 4 days. day3. * Continue Protonix IV 40 twice daily. * Empiric Ceftriaxone Day 3. WILL STOP AFTER 4TH DOSE. * Started propranolol 10 mg by mouth twice a day and monitor BP/heart rate * on reg diet. * Avoid NSAIDs. * Follow-up Gastro recommendations 2. ?? underlying liver disease INR 1.45, hypoalbuminemia 3.1. Patient also has hyponatremia. Given coagulopathy hypoalbuminemia and hyponatremia, there is possibility for underlying liver disease. However patient has no known history of any hepatitis , autoimmune disease, cirrhosis of liver. RUQ Dupplex US is negative. Hepatitis panel negative. JACK negative. * Alpha-fetoprotein pending * Anti-smooth muscle antibody pending * Requested records from [facility] 3. Hyponatremia; Resolved Sodium 128 at the time of admission. Likely from hypovolemic hyponatremia from GI blood loss. TSH, Free T4 Normal. * Continue to monitor sodium. 4. Leukocytosis; WBC 16.6 at the time of admission, no bandemia, no fever, chills. No focal consolidation was found on CXR. UA negative. Leukocytosis most likely reactive 2/2 to anemia. * Monitor for fever, chills * Monitor WBC count * Patient continue to have leukocytosis, transaminitis. Right upper quadrant ultrasound showed no cholelithiasis or cholecystitis. No signs of cholangitis. mild dilatation of CBD and gallbladder, without choledocholithiasis * trend lfts 5. Diabetes mellitus; * Holding home medication metformin * ACCU-checks * Continue Levemir 15 units a.m. and 15 units nighttime * NovoLog sliding scale 4. Osteoarthritis continue alendronate every Wednesday 5. Depression continue divalproex 6. Dementia continue donepezil 10 mg daily 7. Hypothyroidism continue levothyroxine 75 g daily 8. Hypertension, takes lisinopril 10 daily, hold lisinopril for now given GI bleed 9. Hyperlipidemia continue pravastatin 10 mg daily 10. Chronic constipation Patient is full code DVT prophylaxis alps only given GI bleed FULL LIQUID DIET Problem List: 1. Leukocytosis 2. Anemia due to blood loss, acute Pain Ratin Tomorrow's Labs & Rationales: CBC ICU BUNDLE Plan DVT/Prophylaxis: mechanical Martita FLORES,[facility] 10/23/17 0938: Attending MD Review Statement Attending Sign Off Attending Cosign Statement: I have: examined this patient, reviewed [facility] EMR data, personally reviewd images, discussd w/resident/PA/DETAIL SERGEANT, discussed mgmt plan w/liana, discussed mgmt plan w/CM, discussed mgmt plan w/pt, agreed w/resident/PA/DETAIL SERGEANT, amended to note. Other Findings: Seen and examined independently Stable This is a 82-year-old female with past medical history significant for osteoarthritis, constipation, depression, Alzheimer's dementia, diabetes mellitus type 2, hypothyroidism, hypertension, generalized weakness, gait instability, hyperlipidemia, [place] palsy with no residual deficits, brought in by ambulance from [facility] with Upper GI bleed secondary to esophageal varices, with probable underlying cirrhosis (negative viral hepatitis serologies, JACK). No evidence of rebleeding status post variceal ligation. Vital signs stable, hemoglobin stable. No encephalopathy, fever or leukocytosis. Mild coagulopathy has resolved Dementia DM/oa/depressionhtn/hyperlipedemia Recommendations: * Continue octreotide 50 mcg/m * Clear liquid diet and advance per gi * CBC twice a day; maintain hemoglobin greater than 7 * Agree with transfer out of ICU
--- NOTE | 2017-10-23 12:59 | PN- Gastroenterology ---
Assessment/Plan GI Assessment/Recommendations: Upper GI bleed secondary to esophageal varices, with probable underlying cirrhosis. No evidence of rebleeding status post variceal ligation. Vital signs stable, hemoglobin stable. No encephalopathy, fever. Has developed a new leukocytosis of unclear etiology. In addition, LFTs continue to rise daily. Initial ultrasound demonstrated mild dilatation of CBD and gallbladder, without choledocholithiasis. Mild coagulopathy has resolved. Alpha-fetoprotein pending. Recommendations: * Continue octreotide 50 mcg/hr, and ceftriaxone, for 1 more day * Begin propranolol 10 mg by mouth twice a day and monitor BP/heart rate * Advance diet as tolerated * CBC daily; maintain hemoglobin greater than 7 * Recheck LFTs tomorrow, and include alkaline phosphatase, and INR. * Transfer out of ICU Subjective Subjective: The patient cannot relay a history. There apparently was transient abdominal pain overnight, but none now. No nausea, vomiting, bowel movement, melena, bright red blood per rectum. Poor appetite. Objective Vital Signs and I&Os Vital Signs Date Time Temp Pulse Resp B/P B/P Pulse O2 O2 Flow FiO2 Mean Ox Delivery Rate 10/23 0800 97.2 68 20 130/60 Room Air / 0400 99.1 82 20 138/60 / 0200 100.1 05/05 0000 92 Room Air 05/05 0000 99.7 80 22 148/50 92 Room Air / 1600 97.4 78 23 146/43 Room Air Intake & Output 10/23 1600 /05 0400 10/22 1600 / 0400 10/21 1600 10/21 0400 Intake Total 900 1090 1588.5 800 2850 Output Total 352 Balance 900 1090 1588.5 800 2498 Intake, Blood 350 Product Intake, IV 999 671 2307.5 800 2500 Intake, Oral 100 240 0 0 Number 0 0 1 2 Bowel Movements Output, Stool 2 Output, Urine 350 Patient 149 lb 149 lb 160 lb Weight Weight Bed scale Measurement Method Physical Exam: Alert. Sclera anicteric. No edema. Abdomen soft, normal bowel sounds, nondistended, nontender. Current Medications: Current Medications Sig/Atul Start time Last Medication Dose Route Stop Time Status Admin Acetaminophen 650 MG Q6P PRN 10/21 0815 AC PO Ceftriaxone Sodium 1,000 MG DAILY 10/22 09 DC 10/23 IV 10/23 1200 0928 Dextrose/Sodium 1,000 ML Q13H 10/21 1915 DC 10/22 Chloride IV 2344 Divalproex Sodium 250 MG BID 10/23 2100 AC PO Donepezil HCl 10 MG DAILY 10/21 0900 AC 10/23 PO 0903 Insulin Aspart 0 TIDAC 10/23 0845 AC 10/23 SC 1158 Insulin Detemir 15 UNITS QPM 10/23 2100 AC SC Insulin Detemir 30 UNITS DAILY 10/23 0900 DC SC Insulin Detemir 15 UNITS DAILY 10/23 0900 AC 10/23 SC 0911 Insulin Detemir 30 UNITS QPM 10/22 2100 DC 10/22 SC 2051 Insulin Detemir 15 UNITS DAILY 10/22 0900 DC SC Insulin Human Regular 1 UNITS .STK-MED ONE 10/22 2341 DC IV 10/22 234 Insulin Human Regular 4 UNITS .STK-MED ONE 10/22 1808 DC IV 10/22 1809 Insulin Human Regular 0 Q6 10/21 1200 DC 10/22 SC 2345 Levothyroxine Sodium 0.075 MG DAILY 10/21 0900 AC 10/23 PO 0903 Magnesium Oxide 400 MG BID 10/22 2100 AC 10/23 PO 0903 Octreotide Acetate 500 MCG Q20H 10/21 1400 AC 10/23 Sodium Chloride 500 ML IV 10/24 1400 0535 Pantoprazole Sodium 40 MG BID 10/21 0900 AC 10/23 IV 0905 Potassium Chloride 20 MEQ ONCE ONE 10/23 0945 DC 10/23 PO 10/23 0946 0945 Potassium Chloride 40 MEQ ONCE ONE 10/23 0730 DC PO 10/23 0731 Pravastatin Sodium 10 MG DAILY 10/21 0900 AC 10/23 PO 0903 Valproate Sodium 250 MG Q12H 10/21 2100 DC 10/23 Sodium Chloride 50 ML IV 0910 Results Pertinent Lab Results: Laboratory Tests 10/23 10/23 0650 0340 Chemistry Sodium (137 - 145 mmol/L) 138 Potassium (3.5 - 5.1 mmol/L) 3.6 Chloride (98 - 107 mmol/L) 99 Carbon Dioxide (22 - 30 mmol/L) 29 Anion Gap (5 - 16) 9 BUN (7 - 17 mg/dL) 11 Creatinine (0.5 - 1.0 mg/dL) 0.6 Estimated GFR (>60 ml/min) > 60 Glucose (65 - 99 mg/dL) 53 L Lactic Acid (0.7 - 2.1 mmol/L) 1.1 Calcium (8.4 - 10.2 mg/dL) 8.2 L Phosphorus (2.5 - 4.5 mg/dL) 3.5 Magnesium (1.6 - 2.3 mg/dL) 1.7 Total Bilirubin (0.2 - 1.3 mg/dL) 0.4 AST (14 - 36 U/L) 238 H ALT (9 - 52 U/L) 193 H Albumin (3.5 - 5.0 g/dL) 3.1 L Hematology CBC w Diff MAN DIFF ORDERED WBC (4.8 - 10.8 /CUMM) 17.0 H RBC (4.20 - 5.40 /CUMM) 2.87 L Hgb (12.0 - 16.0 G/DL) 8.5 L Hct (37 - 47 %) 25.8 L MCV (81.0 - 99.0 FL) 89.8 MCH (27.0 - 31.0 PG) 29.7 MCHC (33.0 - 37.0 G/DL) 33.1 RDW (11.5 - 14.5 %) 15.0 H Plt Count (130 - 400 /CUMM) 203 MPV (7.4 - 10.4 FL) 7.6 Gran % (42.2 - 75.2 %) 37.0 L Lymphocytes % (20.5 - 51.1 %) 52.1 H Monocytes % (1.7 - 9.3 %) 8.7 Eosinophils % (0 - 5 %) 1.9 Basophils % (0.0 - 2.0 %) 0.3 Absolute Granulocytes (1.4 - 6.5 /CUMM) 6.3 Segmented Neutrophils (42.2 - 75.2 %) 47 Absolute Lymphocytes (1.2 - 3.4 /CUMM) 8.9 H Lymphocytes (20.5 - 51.1 %) 46 Monocytes (1.7 - 9.3 %) 5 Absolute Monocytes (0.10 - 0.60 /CUMM) 1.5 H Eosinophils (0 - 5.0 %) 2 Absolute Eosinophils (0.0 - 0.7 /CUMM) 0.3 Absolute Basophils (0.0 - 0.2 /CUMM) 0.1 Platelet Estimate (ADEQUATE) ADEQUATE Hypochromic-Microcytic 2+ 05/04 05/04 1957 1136 Hematology CBC w Diff NO MAN DIFF REQ NO MAN DIFF REQ WBC (4.8 - 10.8 /CUMM) 9.9 9.0 RBC (4.20 - 5.40 /CUMM) 2.79 L 2.92 L Hgb (12.0 - 16.0 G/DL) 8.2 L 8.7 L Hct (37 - 47 %) 24.8 L 25.5 L MCV (81.0 - 99.0 FL) 88.9 87.3 MCH (27.0 - 31.0 PG) 29.4 29.8 MCHC (33.0 - 37.0 G/DL) 33.1 34.2 RDW (11.5 - 14.5 %) 15.2 H 15.1 H Plt Count (130 - 400 /CUMM) 158 159 MPV (7.4 - 10.4 FL) 7.3 L 7.5 Gran % (42.2 - 75.2 %) 51.6 46.2 Lymphocytes % (20.5 - 51.1 %) 36.3 39.9 Monocytes % (1.7 - 9.3 %) 9.3 10.1 H Eosinophils % (0 - 5 %) 2.3 3.0 Basophils % (0.0 - 2.0 %) 0.5 0.8 Absolute Granulocytes (1.4 - 6.5 /CUMM) 5.1 4.2 Absolute Lymphocytes (1.2 - 3.4 /CUMM) 3.6 H 3.6 H Absolute Monocytes (0.10 - 0.60 /CUMM) 0.9 H 0.9 H Absolute Eosinophils (0.0 - 0.7 /CUMM) 0.2 0.3 Absolute Basophils (0.0 - 0.2 /CUMM) 0 0.1 10/22 10/22 0340 0005 Chemistry Sodium (137 - 145 mmol/L) 140 Potassium (3.5 - 5.1 mmol/L) 4.2 Chloride (98 - 107 mmol/L) 102 Carbon Dioxide (22 - 30 mmol/L) 27 Anion Gap (5 - 16) 10 BUN (7 - 17 mg/dL) 19 H Creatinine (0.5 - 1.0 mg/dL) 0.6 Estimated GFR (>60 ml/min) > 60 Glucose (65 - 99 mg/dL) 80 Calcium (8.4 - 10.2 mg/dL) 8.4 Phosphorus (2.5 - 4.5 mg/dL) 4.1 Magnesium (1.6 - 2.3 mg/dL) 1.8 Total Bilirubin (0.2 - 1.3 mg/dL) 0.6 AST (14 - 36 U/L) 111 H ALT (9 - 52 U/L) 84 H Albumin (3.5 - 5.0 g/dL) 3.3 L TSH (0.270 - 4.200 uIU/mL) 0.515 Free T4 (0.85 - 1.93 ng/dL) 1.54 Coagulation PT (9.4 - 12.5 SEC) 14.2 H INR (0.90 - 1.19) 1.30 H Hematology CBC w Diff MAN DIFF ORDERED NO MAN DIFF REQ WBC (4.8 - 10.8 /CUMM) 13.6 H 13.1 H RBC (4.20 - 5.40 /CUMM) 3.16 L 2.86 L Hgb (12.0 - 16.0 G/DL) 9.4 L 8.5 L Hct (37 - 47 %) 27.9 L 25.2 L MCV (81.0 - 99.0 FL) 88.5 88.0 MCH (27.0 - 31.0 PG) 29.7 29.8 MCHC (33.0 - 37.0 G/DL) 33.6 33.9 RDW (11.5 - 14.5 %) 15.4 H 15.0 H Plt Count (130 - 400 /CUMM) 194 172 MPV (7.4 - 10.4 FL) 8.1 7.8 Gran % (42.2 - 75.2 %) 42.8 48.0 Lymphocytes % (20.5 - 51.1 %) 47.0 41.7 Monocytes % (1.7 - 9.3 %) 8.2 9.0 Eosinophils % (0 - 5 %) 1.5 0.7 Basophils % (0.0 - 2.0 %) 0.5 0.6 Absolute Granulocytes (1.4 - 6.5 /CUMM) 5.8 6.3 Segmented Neutrophils (42.2 - 75.2 %) 77 H Absolute Lymphocytes (1.2 - 3.4 /CUMM) 6.4 H 5.5 H Lymphocytes (20.5 - 51.1 %) 49 Monocytes (1.7 - 9.3 %) 3 Absolute Monocytes (0.10 - 0.60 /CUMM) 1.1 H 1.2 H Eosinophils (0 - 5.0 %) 4 Absolute Eosinophils (0.0 - 0.7 /CUMM) 0.2 0.1 Absolute Basophils (0.0 - 0.2 /CUMM) 0.1 0.1 Platelet Estimate (ADEQUATE) ADEQUATE Polychromasia 1+ Poikilocytosis 1+ Basophilic Stippling SLIGHT Ovalocytes 1+ Other Body Source Fld Total RBCs Counted (%) 100 10/21 10/21 1845 1300 Hematology CBC w Diff NO MAN DIFF REQ WBC (4.8 - 10.8 /CUMM) 13.4 H Cancelled RBC (4.20 - 5.40 /CUMM) 3.03 L Cancelled Hgb (12.0 - 16.0 G/DL) 9.0 L Cancelled Hct (37 - 47 %) 26.8 L Cancelled MCV (81.0 - 99.0 FL) 88.5 Cancelled MCH (27.0 - 31.0 PG) 29.8 Cancelled MCHC (33.0 - 37.0 G/DL) 33.6 Cancelled RDW (11.5 - 14.5 %) 15.0 H Cancelled Plt Count (130 - 400 /CUMM) 187 Cancelled MPV (7.4 - 10.4 FL) 7.7 Cancelled Gran % (42.2 - 75.2 %) 48.3 Lymphocytes % (20.5 - 51.1 %) 42.4 Monocytes % (1.7 - 9.3 %) 8.6 Eosinophils % (0 - 5 %) 0.4 Basophils % (0.0 - 2.0 %) 0.3 Absolute Granulocytes (1.4 - 6.5 /CUMM) 6.5 Absolute Lymphocytes (1.2 - 3.4 /CUMM) 5.7 H Absolute Monocytes (0.10 - 0.60 /CUMM) 1.2 H Absolute Eosinophils (0.0 - 0.7 /CUMM) 0.1 Absolute Basophils (0.0 - 0.2 /CUMM) 0 10/21 10/21 10/21 1300 1257 1227 Chemistry Sodium (137 - 145 mmol/L) 133 L Potassium (3.5 - 5.1 mmol/L) 4.8 Chloride (98 - 107 mmol/L) 97 L Carbon Dioxide (22 - 30 mmol/L) 25 Anion Gap (5 - 16) 11 BUN (7 - 17 mg/dL) 26 H Creatinine (0.5 - 1.0 mg/dL) 0.6 Estimated GFR (>60 ml/min) > 60 Glucose (65 - 99 mg/dL) 152 H Calcium (8.4 - 10.2 mg/dL) 7.7 L Phosphorus (2.5 - 4.5 mg/dL) 3.6 Magnesium (1.6 - 2.3 mg/dL) 1.6 Total Bilirubin (0.2 - 1.3 mg/dL) 0.5 AST (14 - 36 U/L) 86 H ALT (9 - 52 U/L) 72 H Albumin (3.5 - 5.0 g/dL) 3.2 L Triglycerides (<150 mg/dL) 120 Cancelled Cholesterol (<200 MG/DL) 118 Cancelled LDL Cholesterol, Calc (65 - 129 mg/dL) 56 L Cancelled HDL Cholesterol (40 - 60 mg/dL) 38 L Cancelled Cholesterol/HDL Ratio (0.00 - 4.23 %) 3 Cancelled Hematology CBC w Diff NO MAN DIFF REQ WBC (4.8 - 10.8 /CUMM) 15.1 H RBC (4.20 - 5.40 /CUMM) 3.33 L Hgb (12.0 - 16.0 G/DL) 10.0 L Hct (37 - 47 %) 29.5 L MCV (81.0 - 99.0 FL) 88.7 MCH (27.0 - 31.0 PG) 30.0 MCHC (33.0 - 37.0 G/DL) 33.9 RDW (11.5 - 14.5 %) 15.0 H Plt Count (130 - 400 /CUMM) 196 MPV (7.4 - 10.4 FL) 8.9 Gran % (42.2 - 75.2 %) 53.8 Lymphocytes % (20.5 - 51.1 %) 38.1 Monocytes % (1.7 - 9.3 %) 7.7 Eosinophils % (0 - 5 %) 0.1 Basophils % (0.0 - 2.0 %) 0.3 Absolute Granulocytes (1.4 - 6.5 /CUMM) 8.1 H Absolute Lymphocytes (1.2 - 3.4 /CUMM) 5.8 H Absolute Monocytes (0.10 - 0.60 /CUMM) 1.2 H Absolute Eosinophils (0.0 - 0.7 /CUMM) 0 Absolute Basophils (0.0 - 0.2 /CUMM) 0 Serology Hepatitis A IgM Ab (NONREACTIVE) NONREACTIVE Cancelled Hep Bs Antigen (NONREACTIVE) NONREACTIVE Cancelled Hep B Core IgM Ab Conf (NONREACTIVE) NONREACTIVE Cancelled Hepatitis C Antibody (NONREACTIVE) NONREACTIVE Cancelled 10/21 10/21 UNK 0640 Immunology Anti-Smooth Muscle Ab Cancelled Urines Urinalysis HEAVY H Urine Color (YEL,AMB,STR) YEL Urine Clarity (CLEAR) CLDY H Urine pH (5.0 - 8.0) 6.0 Ur Specific Baker (1.001 - 1.035) >= 1.030 Urine Protein (NEG,<30 MG/DL) 100 H Urine Ketones (NEG) 15 H Urine Nitrite (NEG) NEG Urine Bilirubin (NEG) NEG Urine Urobilinogen (0.1 - 1.0 EU/dl) 0.2 Ur Leukocyte Esterase (NEG) NEG Ur Microscopic SEDIMENT EXAMINED Urine RBC (0 - 5 /HPF) 5-10 H Urine WBC (0 - 2 /HPF) 5-10 H Ur Epithelial Cells (NONE,FEW) MOD H Urine Bacteria (NEG/NONE) FEW H Hyaline Casts (0/LPF) 1-3 H Urine Mucus (FEW,NONE) MOD H Urine Hemoglobin (NEG) TRACE-LYSED Urine Glucose (N MG/DL) 100 H 10/21 10/21 0405 0400 Chemistry Sodium (137 - 145 mmol/L) 128 L Potassium (3.5 - 5.1 mmol/L) 4.7 Chloride (98 - 107 mmol/L) 93 L Carbon Dioxide (22 - 30 mmol/L) 22 Anion Gap (5 - 16) 13 BUN (7 - 17 mg/dL) 18 H Creatinine (0.5 - 1.0 mg/dL) 1.0 Estimated GFR (>60 ml/min) 53 L BUN/Creatinine Ratio (7 - 25 %) 18.0 Glucose (65 - 99 mg/dL) 225 H Serum Osmolality (285 - 295 MOSM/KG) 282 L Calcium (8.4 - 10.2 mg/dL) 8.6 Total Bilirubin (0.2 - 1.3 mg/dL) 0.5 AST (14 - 36 U/L) 53 H ALT (9 - 52 U/L) 39 Alkaline Phosphatase (<127 U/L) 61 Total Protein (6.3 - 8.2 g/dL) 6.0 L Albumin (3.5 - 5.0 g/dL) 3.1 L Globulin (1.9 - 4.2 gm/dL) 2.9 Albumin/Globulin Ratio (1.1 - 2.2 %) 1.1 Vitamin B12 (239 - 931 pg/mL) 376 Folate (2.76 - 20.0 ng/mL) > 20.0 H TSH (0.270 - 4.200 uIU/mL) 6.440 H Free T4 (0.85 - 1.93 ng/dL) 1.78 Coagulation PT (9.4 - 12.5 SEC) 15.9 H INR (0.90 - 1.19) 1.45 H Hematology CBC w Diff MAN DIFF ORDERED WBC (4.8 - 10.8 /CUMM) 16.6 H RBC (4.20 - 5.40 /CUMM) 2.96 L Hgb (12.0 - 16.0 G/DL) 8.6 L Hct (37 - 47 %) 26.5 L MCV (81.0 - 99.0 FL) 89.6 MCH (27.0 - 31.0 PG) 29.1 MCHC (33.0 - 37.0 G/DL) 32.4 L RDW (11.5 - 14.5 %) 15.3 H Plt Count (130 - 400 /CUMM) 235 MPV (7.4 - 10.4 FL) 8.0 Gran % (42.2 - 75.2 %) 38.8 L Lymphocytes % (20.5 - 51.1 %) 50.7 Monocytes % (1.7 - 9.3 %) 9.3 Eosinophils % (0 - 5 %) 1.0 Basophils % (0.0 - 2.0 %) 0.2 Absolute Granulocytes (1.4 - 6.5 /CUMM) 6.4 Segmented Neutrophils (42.2 - 75.2 %) 36 L Band Neutrophils (0.0 - 5.0 %) 2 Absolute Lymphocytes (1.2 - 3.4 /CUMM) 8.4 H Lymphocytes (20.5 - 51.1 %) 54 H Monocytes (1.7 - 9.3 %) 5 Absolute Monocytes (0.10 - 0.60 /CUMM) 1.5 H Eosinophils (0 - 5.0 %) 2 Absolute Eosinophils (0.0 - 0.7 /CUMM) 0.2 Basophils (0.0 - 2.0 %) 1 Absolute Basophils (0.0 - 0.2 /CUMM) 0 Platelet Estimate (ADEQUATE) ADEQUATE Normocytic RBCs VERIFIED Normochromic RBCs VERIFIED Stomatocytes FEW Immunology Anti-Smooth Muscle Ab Pending Toxicology Valproic Acid (50 - 120 ug/mL) 50.9 05/03 0400 Chemistry Alpha Fetoprotein Pending Immunology JACK Titer ND Anti-Nuclear Antibody (NEG,1:40) NEG 1:40 IFA ASSAY
[2017-10-23 16:00] VITALS: BP 150/70
[2017-10-23 17:32] LABS: ABSOLUTE BASOPHIL COUNT 0.1 /CUMM (0.0-0.2); ABSOLUTE EOSINOPHIL COUNT 0.2 /CUMM (0.0-0.7); ABSOLUTE GRANULOCYTE CT 4.6 /CUMM (1.4-6.5); ABSOLUTE LYMPH COUNT 3.9 /CUMM (1.2-3.4); ABSOLUTE MONOCYTE COUNT 0.8 /CUMM (0.10-0.60); BASOPHIL % 0.9 % (0.0-2.0); EOSINOPHIL % 2.1 % (0-5); GRANULOCYTE % 48.2 % (42.2-75.2); MEAN CORPUSCULAR HGB 29.2 PG (27.0-31.0); MEAN CORPUSCULAR HGB CONC 32.8 G/DL (33.0-37.0); MEAN CORPUSCULAR VOLUME 89.1 FL (81.0-99.0); MEAN PLATELET VOLUME 7.2 FL (7.4-10.4); PLATELET COUNT 152 /CUMM (130-400); RED BLOOD CELL CT 2.81 /CUMM (4.20-5.40); WHITE BLOOD CELL COUNT 9.6 /CUMM (4.8-10.8)
[2017-10-23 22:17] VITALS: BP 132/74
[2017-10-24 06:20] VITALS: BP 134/60
--- NOTE | 2017-10-24 08:31 | PN- Housestaff ---
[facility] Subjective Follow-up For: Hematemesis status post endoscopically and band ligation. Acute blood loss anemia 1st degree heart block Subjective: No overnight events. Remained afebrile. Seen and examined this morning. She denied any chest pain, short of breath, nausea, vomiting and dysuria. Patient reported weakness. Patient reported that she couldn't sleep last night. Patient is being transferred to telemetry for close monitoring. Patient may need atropine or pacer if she becomes symptomatic. Review of Systems Constitutional: Reports: weakness. Denies: chills, fever. EENTM: Reports: no symptoms. Cardiovascular: Denies: chest pain, orthopena, palpitations. Respiratory: Reports: no symptoms. Gastrointestinal: Reports: no symptoms. Genitourinary: Reports: no symptoms. Neurological/Psychological: Reports: no symptoms. Objective Last 24 Hrs of Vital Signs/I&O Vital Signs Date Time Temp Pulse Resp B/P B/P Pulse O2 O2 Flow FiO2 Mean Ox Delivery Rate 10/25 619 98.1 48 16 134/60 91 Room Air 10/23 2217 98.5 84 20 132/74 92 Room Air 10/24 2019 64 130/70 10/23 2019 64 130/70 10/23 1805 77 156/80 10/23 1600 92 Room Air Room Air 10/23 1600 98.8 77 22 150/70 92 Room Air Room Air Intake & Output 10/24 1600 10/24 0800 05/06 0000 Intake Total 375 145 Output Total 300 Balance 75 145 Intake, IV 175 25 Intake, Oral 200 120 Number 0 0 Bowel Movements Output, Urine 300 Physical Exam General Appearance: Alert, Oriented X3, Cooperative Skin: No Rashes Skin Temp/Moisture Exam: Warm/Dry Sepsis Skin Exam (color): Normal for Ethnicity HEENT: Atraumatic, PERRLA, EOMI Neck: Supple Cardiovascular: Normal S1, Normal S2 Lungs: Clear to Auscultation Abdomen: Soft, No Tenderness Neurological: Normal Speech, Normal Tone Extremities: No Edema Assessment/Plan Assessment: 82-year-old female with past medical history significant for osteoarthritis, constipation, depression, Alzheimer's dementia, diabetes mellitus type 2, hypothyroidism, hypertension, generalized weakness, gait instability, hyperlipidemia, 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 Patient has history of Alzheimer's dementia, residing at extended care [facility] since June 2017. Patient usually follows cloud solutions architect Monico and PCP Dr Arriaga. Patient was transferred to general medicine floor after band ligation for variceal bleeding. Hematemesis due to variceal bleed status post endoscopy and band ligation; -Patient is hematologically stable and patient was transferred from ICU to general medicine floor last night after an endoscopy with band ligation. -Continue octreotide drip. -Watch for hematemesis -GI recommendations -Propranolol was discontinued -Continue omeprazole Acute blood loss anemia: -Due to hematemesis -Patient received blood blood transfusion and she is maintaining hemoglobin above 9 -Repeat CBC First-degree heart block and bradycardia: -This morning patient has bradycardia her heart rate was 48. -EKG showed first-degree heart block. Patient is asymptomatic. -Patient was hemodynamically stable -Possibly due to propranolol that was discontinued this morning. -If patient becomes symptomatic she may need pacers and atropine -Follow up cardiology recommendations. History of diabetes: -Accu-Cheks -Fasting blood sugar was 79 this morning -Continue Levemir 15 units at bedtime H/O Hypertension and hyperlipidemia: -Lisinopril and pravastatin History of hypothyroidism: -Continue levothyroxine DVT prophylaxis: Mechanical Code Status: Full code Problem List: 1. Upper GI bleed Pain Ratin Pain Location: none Pain Goal: Remain pain free Pain Plan: pain pathway Tomorrow's Labs & Rationales: cbc/bep Shola Lee MD 10/24/17 1040: Attending MD Review Statement Attending Statement Attending Statement: examined this patient, discuss w/resident/PA/ASSISTANT [employer]ENDER, agreed w/resident/PA/ASSI[employer]ANT [employer]ENDER, discussed with family, reviewed EMR data (avail), discussed with nursing, discussed with case mgmt, reviewed images, amended to note Attending Assessment/Plan: Shola Nichole M.D. have examined this patient, reviewed available EMR data, personally reviewed images, discussed with resident/PA/ASSI[employer]ANT [employer]ENDER, discussed management plan with housestaff and nursing staff, discussed managment plan all of healthcare providers, discussed management plan with patient and/or family, agreed with resident/PA/ASSISTANT [employer] PUBLIC DEFENDER. The past history and parts of the chart have been autopopulated. Impression 82 year old woman * downgraded from ICU for upper GI bleed/acute blood loss anemia secondary to esophageal varices * now with overnight bradycardia after initiation of propranolol, asymptomatic Plan -transfer to telemetry -EKG consistent with a first degree AV block @45bpm -cardiology consultation/pacer pads if needed -currently without symptoms -propranolol held -cbc stable -continue octreotide -diet per GI -monitor LFTs DVT prophylaxis at all times - ALPS
[2017-10-24 08:39] LABS: PT 15.4 SEC (9.4-12.5)
[2017-10-24 08:44] LABS: ABSOLUTE BASOPHIL COUNT 0 /CUMM (0.0-0.2); ABSOLUTE GRANULOCYTE CT 6.1 /CUMM (1.4-6.5); ABSOLUTE LYMPH COUNT 2.9 /CUMM (1.2-3.4); ABSOLUTE MONOCYTE COUNT 0.7 /CUMM (0.10-0.60); MEAN CORPUSCULAR HGB CONC 33.3 G/DL (33.0-37.0); WHITE BLOOD CELL COUNT 9.9 /CUMM (4.8-10.8)
[2017-10-24 09:08] LABS: ABSOLUTE EOSINOPHIL COUNT 0.2 /CUMM (0.0-0.7); BASOPHIL % 0.4 % (0.0-2.0); EOSINOPHIL % 1.9 % (0-5); HEMATOCRIT 28.5 % (37-47); MEAN CORPUSCULAR HGB 29.7 PG (27.0-31.0); MEAN CORPUSCULAR VOLUME 89.3 FL (81.0-99.0); MEAN PLATELET VOLUME 7.5 FL (7.4-10.4); RBC DISTRIBUTION WIDTH 15.2 % (11.5-14.5); RED BLOOD CELL CT 3.19 /CUMM (4.20-5.40)
[2017-10-24 09:10] VITALS: BP 86/40
[2017-10-24 09:17] LABS: PLATELET COUNT 233 /CUMM (130-400)
[2017-10-24 10:10] VITALS: BP 96/50
[2017-10-24 12:58] VITALS: BP 122/58
[2017-10-24 14:24] VITALS: BP 124/62
--- NOTE | 2017-10-24 15:41 | PN- Gastroenterology ---
Assessment/Plan GI Assessment/Recommendations: Upper GI bleed secondary to esophageal varices, with probable underlying cirrhosis. No evidence of rebleeding status post variceal ligation. Hemoglobin stable. No encephalopathy, fever. Leukocytosis resolved. Improvement in LFTs. Mild coagulopathy has resolved. Alpha-fetoprotein pending. The patient was started on low-dose propranolol and developed bradycardia and hypotension. Recommendations: * Discontinue octreotide in the morning * Discontinue ceftriaxone * Discontinue propranolol; the patient is apparently intolerant of beta blockers. * Regular diet * CBC daily; maintain hemoglobin greater than 7 * Recheck LFTs tomorrow. * We will need to consider serial endoscopies and banding to eradicate varices. This been discussed with the patient's daughter. Subjective Subjective: No nausea, vomiting, pain, bowel movement, melena, hematochezia. No dizziness, chest pain, dyspnea. Objective Vital Signs and I&Os Vital Signs Date Time Temp Pulse Resp B/P B/P Pulse O2 O2 Flow FiO2 Mean Ox Delivery Rate 10/24 1424 97.8 75 18 124/62 96 Room Air 10/24 1258 94 Nasal 3.0L Cannula 10/24 1258 78 18 122/58 88 Room Air 10/24 1159 Room Air 10/24 1010 42 96/50 10/24 0910 38 86/40 10/24 0620 98.1 48 16 134/60 91 Room Air 10/23 2217 98.5 84 20 132/74 92 Room Air 10/24 2019 64 130/70 10/23 2018 64 130/70 10/23 1805 77 156/80 10/23 1600 92 Room Air Room Air 10/23 1600 98.8 77 22 150/70 92 Room Air Room Air Intake & Output 10/24 1600 10/24 0400 10/23 1600 10/23 0400 10/22 1600 10/22 0400 Intake Total 9855 578 8674 1090 1588.5 800 Output Total 300 Balance 185 222 2398 1090 1588.5 800 Intake, IV 131 69 [id number] 227 1563.5 800 Intake, Oral 782 120 640 240 0 0 Number 0 0 0 0 1 Bowel Movements Output, Urine 300 Patient 149 lb Weight Physical Exam: Sclera anicteric. Abdomen soft, nondistended, nontender. Current Medications: Current Medications Sig/Atul Start time Last Medication Dose Route Stop Time Status Admin Acetaminophen 650 MG Q6P PRN 10/21 0815 AC PO Ceftriaxone Sodium 1,000 MG DAILY 10/24 1000 DC 10/24 IV 10/24 1001 0930 Divalproex Sodium 250 MG BID 10/23 2100 AC 10/24 PO 0929 Donepezil HCl 10 MG DAILY 10/21 0900 AC 10/24 PO 0929 Insulin Aspart 0 TIDAC 10/23 0845 AC 10/24 SC 1255 Insulin Detemir 15 UNITS QPM 10/23 2100 AC 10/23 SC 2021 Insulin Detemir 15 UNITS DAILY 10/23 0900 AC 10/23 SC 0911 Levothyroxine Sodium 0.075 MG DAILY 10/21 0900 AC 10/24 PO 0929 Lisinopril 10 MG DAILY 10/23 1849 AC 10/23 PO 2020 Magnesium Oxide 400 MG BID 10/22 2100 AC 10/24 PO 0929 Octreotide Acetate 500 MCG Q20H 10/23 2200 AC 10/24 Sodium Chloride 500 ML IV 0112 Octreotide Acetate 500 MCG Q20H 10/21 1400 DC 10/23 Sodium Chloride 500 ML IV 10/25 0900 0535 Pantoprazole Sodium 40 MG BID 10/21 0900 AC 10/24 IV 0930 Pravastatin Sodium 10 MG DAILY 10/21 09 AC 10/24 PO 0929 Propranolol HCl 10 MG BID 10/23 1415 DC 10/23 PO 2019 Sodium Chloride 1,000 ML BOLUS ONE 10/24 0815 DC 10/24 IV 10/24 1014 0930 Results Pertinent Lab Results: Laboratory Tests 10/24 10/23 0730 1710 Chemistry Sodium (137 - 145 mmol/L) 136 L Potassium (3.5 - 5.1 mmol/L) 4.1 Chloride (98 - 107 mmol/L) 96 L Carbon Dioxide (22 - 30 mmol/L) 29 Anion Gap (5 - 16) 11 BUN (7 - 17 mg/dL) 9 Creatinine (0.5 - 1.0 mg/dL) 0.5 Estimated GFR (>60 ml/min) > 60 Glucose (65 - 99 mg/dL) 82 Calcium (8.4 - 10.2 mg/dL) 8.5 Phosphorus (2.5 - 4.5 mg/dL) 4.5 Magnesium (1.6 - 2.3 mg/dL) 2.1 Total Bilirubin (0.2 - 1.3 mg/dL) 0.5 AST (14 - 36 U/L) 141 H ALT (9 - 52 U/L) 156 H Alkaline Phosphatase (<127 U/L) 62 Albumin (3.5 - 5.0 g/dL) 3.5 Coagulation PT (9.4 - 12.5 SEC) 15.4 H INR (0.90 - 1.19) 1.41 H Hematology CBC w Diff NO MAN DIFF REQ NO MAN DIFF REQ WBC (4.8 - 10.8 /CUMM) 9.9 9.6 RBC (4.20 - 5.40 /CUMM) 3.19 L 2.81 L Hgb (12.0 - 16.0 G/DL) 9.5 L 8.2 L Hct (37 - 47 %) 28.5 L 25.0 L MCV (81.0 - 99.0 FL) 89.3 89.1 MCH (27.0 - 31.0 PG) 29.7 29.2 MCHC (33.0 - 37.0 G/DL) 33.3 32.8 L RDW (11.5 - 14.5 %) 15.2 H 15.0 H Plt Count (130 - 400 /CUMM) 233 152 MPV (7.4 - 10.4 FL) 7.5 7.2 L Gran % (42.2 - 75.2 %) 61.0 48.2 Lymphocytes % (20.5 - 51.1 %) 29.2 40.8 Monocytes % (1.7 - 9.3 %) 7.5 8.0 Eosinophils % (0 - 5 %) 1.9 2.1 Basophils % (0.0 - 2.0 %) 0.4 0.9 Absolute Granulocytes (1.4 - 6.5 /CUMM) 6.1 4.6 Absolute Lymphocytes (1.2 - 3.4 /CUMM) 2.9 3.9 H Absolute Monocytes (0.10 - 0.60 /CUMM) 0.7 H 0.8 H Absolute Eosinophils (0.0 - 0.7 /CUMM) 0.2 0.2 Absolute Basophils (0.0 - 0.2 /CUMM) 0 0.1 05/05 05/05 0650 0340 Chemistry Sodium (137 - 145 mmol/L) 138 Potassium (3.5 - 5.1 mmol/L) 3.6 Chloride (98 - 107 mmol/L) 99 Carbon Dioxide (22 - 30 mmol/L) 29 Anion Gap (5 - 16) 9 BUN (7 - 17 mg/dL) 11 Creatinine (0.5 - 1.0 mg/dL) 0.6 Estimated GFR (>60 ml/min) > 60 Glucose (65 - 99 mg/dL) 53 L Lactic Acid (0.7 - 2.1 mmol/L) 1.1 Calcium (8.4 - 10.2 mg/dL) 8.2 L Phosphorus (2.5 - 4.5 mg/dL) 3.5 Magnesium (1.6 - 2.3 mg/dL) 1.7 Total Bilirubin (0.2 - 1.3 mg/dL) 0.4 AST (14 - 36 U/L) 238 H ALT (9 - 52 U/L) 193 H Albumin (3.5 - 5.0 g/dL) 3.1 L Hematology CBC w Diff MAN DIFF ORDERED WBC (4.8 - 10.8 /CUMM) 17.0 H RBC (4.20 - 5.40 /CUMM) 2.87 L Hgb (12.0 - 16.0 G/DL) 8.5 L Hct (37 - 47 %) 25.8 L MCV (81.0 - 99.0 FL) 89.8 MCH (27.0 - 31.0 PG) 29.7 MCHC (33.0 - 37.0 G/DL) 33.1 RDW (11.5 - 14.5 %) 15.0 H Plt Count (130 - 400 /CUMM) 203 MPV (7.4 - 10.4 FL) 7.6 Gran % (42.2 - 75.2 %) 37.0 L Lymphocytes % (20.5 - 51.1 %) 52.1 H Monocytes % (1.7 - 9.3 %) 8.7 Eosinophils % (0 - 5 %) 1.9 Basophils % (0.0 - 2.0 %) 0.3 Absolute Granulocytes (1.4 - 6.5 /CUMM) 6.3 Segmented Neutrophils (42.2 - 75.2 %) 47 Absolute Lymphocytes (1.2 - 3.4 /CUMM) 8.9 H Lymphocytes (20.5 - 51.1 %) 46 Monocytes (1.7 - 9.3 %) 5 Absolute Monocytes (0.10 - 0.60 /CUMM) 1.5 H Eosinophils (0 - 5.0 %) 2 Absolute Eosinophils (0.0 - 0.7 /CUMM) 0.3 Absolute Basophils (0.0 - 0.2 /CUMM) 0.1 Platelet Estimate (ADEQUATE) ADEQUATE Hypochromic-Microcytic 2+ 10/22 1136 Hematology CBC w Diff NO MAN DIFF REQ NO MAN DIFF REQ WBC (4.8 - 10.8 /CUMM) 9.9 9.0 RBC (4.20 - 5.40 /CUMM) 2.79 L 2.92 L Hgb (12.0 - 16.0 G/DL) 8.2 L 8.7 L Hct (37 - 47 %) 24.8 L 25.5 L MCV (81.0 - 99.0 FL) 88.9 87.3 MCH (27.0 - 31.0 PG) 29.4 29.8 MCHC (33.0 - 37.0 G/DL) 33.1 34.2 RDW (11.5 - 14.5 %) 15.2 H 15.1 H Plt Count (130 - 400 /CUMM) 158 159 MPV (7.4 - 10.4 FL) 7.3 L 7.5 Gran % (42.2 - 75.2 %) 51.6 46.2 Lymphocytes % (20.5 - 51.1 %) 36.3 39.9 Monocytes % (1.7 - 9.3 %) 9.3 10.1 H Eosinophils % (0 - 5 %) 2.3 3.0 Basophils % (0.0 - 2.0 %) 0.5 0.8 Absolute Granulocytes (1.4 - 6.5 /CUMM) 5.1 4.2 Absolute Lymphocytes (1.2 - 3.4 /CUMM) 3.6 H 3.6 H Absolute Monocytes (0.10 - 0.60 /CUMM) 0.9 H 0.9 H Absolute Eosinophils (0.0 - 0.7 /CUMM) 0.2 0.3 Absolute Basophils (0.0 - 0.2 /CUMM) 0 0.1 10/22 10/22 0340 0005 Chemistry Sodium (137 - 145 mmol/L) 140 Potassium (3.5 - 5.1 mmol/L) 4.2 Chloride (98 - 107 mmol/L) 102 Carbon Dioxide (22 - 30 mmol/L) 27 Anion Gap (5 - 16) 10 BUN (7 - 17 mg/dL) 19 H Creatinine (0.5 - 1.0 mg/dL) 0.6 Estimated GFR (>60 ml/min) > 60 Glucose (65 - 99 mg/dL) 80 Calcium (8.4 - 10.2 mg/dL) 8.4 Phosphorus (2.5 - 4.5 mg/dL) 4.1 Magnesium (1.6 - 2.3 mg/dL) 1.8 Total Bilirubin (0.2 - 1.3 mg/dL) 0.6 AST (14 - 36 U/L) 111 H ALT (9 - 52 U/L) 84 H Albumin (3.5 - 5.0 g/dL) 3.3 L TSH (0.270 - 4.200 uIU/mL) 0.515 Free T4 (0.85 - 1.93 ng/dL) 1.54 Coagulation PT (9.4 - 12.5 SEC) 14.2 H INR (0.90 - 1.19) 1.30 H Hematology CBC w Diff MAN DIFF ORDERED NO MAN DIFF REQ WBC (4.8 - 10.8 /CUMM) 13.6 H 13.1 H RBC (4.20 - 5.40 /CUMM) 3.16 L 2.86 L Hgb (12.0 - 16.0 G/DL) 9.4 L 8.5 L Hct (37 - 47 %) 27.9 L 25.2 L MCV (81.0 - 99.0 FL) 88.5 88.0 MCH (27.0 - 31.0 PG) 29.7 29.8 MCHC (33.0 - 37.0 G/DL) 33.6 33.9 RDW (11.5 - 14.5 %) 15.4 H 15.0 H Plt Count (130 - 400 /CUMM) 194 172 MPV (7.4 - 10.4 FL) 8.1 7.8 Gran % (42.2 - 75.2 %) 42.8 48.0 Lymphocytes % (20.5 - 51.1 %) 47.0 41.7 Monocytes % (1.7 - 9.3 %) 8.2 9.0 Eosinophils % (0 - 5 %) 1.5 0.7 Basophils % (0.0 - 2.0 %) 0.5 0.6 Absolute Granulocytes (1.4 - 6.5 /CUMM) 5.8 6.3 Segmented Neutrophils (42.2 - 75.2 %) 77 H Absolute Lymphocytes (1.2 - 3.4 /CUMM) 6.4 H 5.5 H Lymphocytes (20.5 - 51.1 %) 49 Monocytes (1.7 - 9.3 %) 3 Absolute Monocytes (0.10 - 0.60 /CUMM) 1.1 H 1.2 H Eosinophils (0 - 5.0 %) 4 Absolute Eosinophils (0.0 - 0.7 /CUMM) 0.2 0.1 Absolute Basophils (0.0 - 0.2 /CUMM) 0.1 0.1 Platelet Estimate (ADEQUATE) ADEQUATE Polychromasia 1+ Poikilocytosis 1+ Basophilic Stippling SLIGHT Ovalocytes 1+ Other Body Source Fld Total RBCs Counted (%) 100 10/21 1845 Hematology CBC w Diff NO MAN DIFF REQ WBC (4.8 - 10.8 /CUMM) 13.4 H RBC (4.20 - 5.40 /CUMM) 3.03 L Hgb (12.0 - 16.0 G/DL) 9.0 L Hct (37 - 47 %) 26.8 L MCV (81.0 - 99.0 FL) 88.5 MCH (27.0 - 31.0 PG) 29.8 MCHC (33.0 - 37.0 G/DL) 33.6 RDW (11.5 - 14.5 %) 15.0 H Plt Count (130 - 400 /CUMM) 187 MPV (7.4 - 10.4 FL) 7.7 Gran % (42.2 - 75.2 %) 48.3 Lymphocytes % (20.5 - 51.1 %) 42.4 Monocytes % (1.7 - 9.3 %) 8.6 Eosinophils % (0 - 5 %) 0.4 Basophils % (0.0 - 2.0 %) 0.3 Absolute Granulocytes (1.4 - 6.5 /CUMM) 6.5 Absolute Lymphocytes (1.2 - 3.4 /CUMM) 5.7 H Absolute Monocytes (0.10 - 0.60 /CUMM) 1.2 H Absolute Eosinophils (0.0 - 0.7 /CUMM) 0.1 Absolute Basophils (0.0 - 0.2 /CUMM) 0
[2017-10-24 22:16] VITALS: BP 116/60
[2017-10-25 06:56] VITALS: BP 112/56
[2017-10-25 08:03] LABS: ABSOLUTE BASOPHIL COUNT 0 /CUMM (0.0-0.2); ABSOLUTE EOSINOPHIL COUNT 0.2 /CUMM (0.0-0.7); ABSOLUTE GRANULOCYTE CT 4.5 /CUMM (1.4-6.5); ABSOLUTE MONOCYTE COUNT 0.8 /CUMM (0.10-0.60); BASOPHIL % 0.2 % (0.0-2.0); EOSINOPHIL % 2.1 % (0-5); HEMATOCRIT 24.7 % (37-47); MEAN CORPUSCULAR HGB 29.3 PG (27.0-31.0); MEAN CORPUSCULAR HGB CONC 32.6 G/DL (33.0-37.0); MEAN CORPUSCULAR VOLUME 89.8 FL (81.0-99.0); MEAN PLATELET VOLUME 7.3 FL (7.4-10.4); RBC DISTRIBUTION WIDTH 15.3 % (11.5-14.5); RED BLOOD CELL CT 2.75 /CUMM (4.20-5.40); WHITE BLOOD CELL COUNT 10.5 /CUMM (4.8-10.8)
[2017-10-25 08:50] LABS: PLATELET COUNT 185 /CUMM (130-400)
--- NOTE | 2017-10-25 11:32 | PN- Att Addend ---
Attending Addendum Attending Brief Note 82F PMH osteoarthritis, constipation, depression, Alzheimer's dementia, diabetes mellitus type 2, hypothyroidism, hypertension sent from [facility] with multiple episodes of hematemesis with EGD showing bleeding esophageal varices s/p band ligation, started on Propranolol post-procedure complicated by bradycardia to 30 's requiring telemetry monitoring, now hemodynamically stable with stable CBC. Primarily Serbian speaking. No complaints today. CBC stable. 1. Bleeding esophageal varices 2. Acute blood loss anemia 3. Symptomatic bradycardia secondary to b-jody Plan - Continue on telemetry - Daily CBC - Follow GI recommendations - Avoid b-blockers - Continue home medications - Advance diet - ALPS for DVT PPx
[2017-10-25 14:00] VITALS: BP 110/62
--- NOTE | 2017-10-25 14:08 | PN- Housestaff ---
Subjective Follow-up For: GI bleed Bradycardia Esophageal varices status post banding Tele-Events Since Last Visit: Sinus rhythm HR 50s-70s Subjective: Patient was seen and examined at bedside. She was resting calmly. She had no acute events overnight. She reports that she is feeling well today he currently has no complaints. She denies any lightheadedness, chest pain, shortness breath , nausea, vomiting, hematemesis, fever, chills. Review of Systems Constitutional: Reports: see HPI. Objective Last 24 Hrs of Vital Signs/I&O Vital Signs Date Time Temp Pulse Resp B/P B/P Pulse O2 O2 Flow FiO2 Mean Ox Delivery Rate 10/25 08 97 Nasal 2.0L Cannula 10/25 0656 99.0 74 16 112/56 95 Nasal Cannula 10/24 2237 Nasal 3.0L Cannula 10/24 2216 99.0 68 16 116/60 97 Nasal Cannula 10/24 1424 97.8 75 18 124/62 96 Room Air Intake & Output 10/25 1600 10/25 0800 10/25 0000 Intake Total 320 760 Output Total Balance 320 760 Intake, IV 200 100 Intake, Oral 120 660 Number 1 2 Bowel Movements Physical Exam General Appearance: Alert, Cooperative, No Acute Distress Skin Temp/Moisture Exam: Warm/Dry Cardiovascular: Regular Rate, Normal S1, Normal S2 Lungs: Clear to Auscultation, Normal Air Movement Abdomen: Normal Bowel Sounds, Soft, No Tenderness Neurological: Normal Speech, Normal Tone, Sensation Intact Extremities: No Clubbing, No Cyanosis, No Edema Current Medications: Current Medications Sig/Atul Start time Last Medication Dose Route Stop Time Status Admin Acetaminophen 650 MG Q6P PRN 10/22 0715 AC PO Divalproex Sodium 250 MG BID 10/23 2099 AC 10/25 PO 0859 Donepezil HCl 10 MG DAILY 10/21 899 AC 10/25 PO 0859 Insulin Aspart 0 TIDAC 10/23 0845 AC 10/25 SC 1320 Insulin Detemir 15 UNITS QPM 10/23 2099 AC 10/24 SC 2106 Insulin Detemir 15 UNITS DAILY 10/23 09 AC 10/25 SC 1137 Levothyroxine Sodium 0.075 MG DAILY 10/21 09 AC 10/25 PO 0859 Lisinopril 10 MG DAILY 10/23 1849 AC 10/25 PO 0858 Magnesium Oxide 400 MG BID 10/22 2099 AC 10/25 PO 0859 Octreotide Acetate 500 MCG Q20H 10/23 2200 DC 10/24 Sodium Chloride 500 ML IV 10/25 0600 1711 Pantoprazole Sodium 40 MG BID 10/21 899 AC 10/25 IV 0858 Pravastatin Sodium 10 MG DAILY 10/21 899 AC 10/25 PO 0859 Last 24 Hrs of Lab/Fausto Results Last 24 Hrs of Labs/Mics: Laboratory Tests 10/25/17 1529: CBC w Diff NO MAN DIFF REQ, RBC 2.88 L, MCV 89.6, MCH 29.8, MCHC 33.3, RDW 15.4 H, MPV 7.4, Gran % 46.0, Lymphocytes % 43.7, Monocytes % 7.3, Eosinophils % 2.6 , Basophils % 0.4, Absolute Granulocytes 4.7, Absolute Lymphocytes 4.5 H, Absolute Monocytes 0.7 H, Absolute Eosinophils 0.3, Absolute Basophils 0 10/25/17 0639: CBC w Diff NO MAN DIFF REQ, RBC 2.75 L, MCV 89.8, MCH 29.3, MCHC 32.6 L, RDW 15.3 H, MPV 7.3 L, Gran % 43.0, Lymphocytes % 47.5, Monocytes % 7.2, Eosinophils % 2.1, Basophils % 0.2, Absolute Granulocytes 4.5, Absolute Lymphocytes 5.0 H, Absolute Monocytes 0.8 H, Absolute Eosinophils 0.2, Absolute Basophils 0 10/25/17 0635: Anion Gap 9, Estimated GFR > 60, BUN/Creatinine Ratio 18.3, Total Bilirubin 0.3, Direct Bilirubin 0.3, AST 75 H, ALT 100 H, Alkaline Phosphatase 73, Total Protein 6.0 L, Albumin 2.9 L Assessment/Plan Assessment: Patient is an 82-year-old female with a PMH significant for osteoporosis, Alzheimer's and his dementia, depression, DM type II, hypothyroidism, HTN, Sotelo' s palsy who presented to [facility] ED for hematemesis. EGD revealed grade 2 esophageal varices which were banded. #Acute blood loss anemia Patient's varices were banded on 10/21/17. She had a small drop in her H/H today, which was rechecked in the afternoon as stabilized. -Continue daily CBCs -Continue to follow GI recommendations -Continue IV PPI twice a day #Bradycardia, resolved Patient became bradycardiac to the 30s after receiving propranolol. Heart rate has remained in the 50s70s since being monitored on telemetry. -Cardiology consult was placed with Dr. Mar, will follow up recommendations #Chronic medical problems Continue home regimen of medications Diet: Diabetic diet DVT prophylaxis: Alps, no pharmacologic DVT prophylaxis secondary to acute blood loss anemia CODE STATUS: Full code Problem List: 1. Anemia due to blood loss, acute 2. Esophageal varices Pain Ratin Pain Location: none Pain Goal: Remain pain free Pain Plan: pain pathway Tomorrow's Labs & Rationales: cbc, bep
[2017-10-25 16:42] LABS: ABSOLUTE BASOPHIL COUNT 0 /CUMM (0.0-0.2); ABSOLUTE EOSINOPHIL COUNT 0.3 /CUMM (0.0-0.7); ABSOLUTE GRANULOCYTE CT 4.7 /CUMM (1.4-6.5); ABSOLUTE LYMPH COUNT 4.5 /CUMM (1.2-3.4); ABSOLUTE MONOCYTE COUNT 0.7 /CUMM (0.10-0.60); BASOPHIL % 0.4 % (0.0-2.0); EOSINOPHIL % 2.6 % (0-5); HEMATOCRIT 25.8 % (37-47); MEAN CORPUSCULAR HGB 29.8 PG (27.0-31.0); MEAN CORPUSCULAR HGB CONC 33.3 G/DL (33.0-37.0); MEAN CORPUSCULAR VOLUME 89.6 FL (81.0-99.0); MEAN PLATELET VOLUME 7.4 FL (7.4-10.4); PLATELET COUNT 206 /CUMM (130-400); RBC DISTRIBUTION WIDTH 15.4 % (11.5-14.5); RED BLOOD CELL CT 2.88 /CUMM (4.20-5.40); WHITE BLOOD CELL COUNT 10.2 /CUMM (4.8-10.8)
--- NOTE | 2017-10-25 18:05 | PN- Gastroenterology ---
Assessment/Plan GI Assessment/Recommendations: Upper GI bleed secondary to esophageal varices, with probable underlying cirrhosis. No evidence of rebleeding status post variceal ligation. Hemoglobin stable. Continued improvement in LFTs. Mild coagulopathy has resolved. Alpha- fetoprotein pending. The patient was started on low-dose propranolol and developed bradycardia and hypotension. This has resolved. Recommendations: * Regular diet * CBC daily while hospitalized; maintain hemoglobin greater than 7 * We will need to consider serial endoscopies and banding to eradicate varices. This been discussed with the patient's daughter. I will no longer see the patient on a daily/regular basis. Please call or reconsult as needed. Once discharged, the patient will follow-up promptly with Dr. Grullon. Subjective Subjective: No bleeding reported. Patient Armenian-speaking, with OBS, and no further history obtained. Objective Vital Signs and I&Os Vital Signs Date Time Temp Pulse Resp B/P B/P Pulse O2 O2 Flow FiO2 Mean Ox Delivery Rate 10/25 1400 97.6 77 20 110/62 98 10/25 0800 97 Nasal 2.0L Cannula 10/25 0656 99.0 74 16 112/56 95 Nasal Cannula 10/24 2237 Nasal 3.0L Cannula 10/24 2216 99.0 68 16 116/60 97 Nasal Cannula Intake & Output 10/25 1600 10/25 0400 10/24 1600 10/24 0400 10/23 1600 10/23 0400 Intake Total 973 750 1884 145 1840 1090 Output Total 350 300 Balance 450 760 311 414 0379 1090 Intake, IV 230 100 371 36 7770 850 Intake, Oral 570 660 782 120 640 240 Number 1 2 0 0 0 Bowel Movements Output, Urine 350 300 Patient 149 lb Weight Physical Exam: Sclera anicteric. Abdomen soft, nontender. Current Medications: Current Medications Sig/Atul Start time Last Medication Dose Route Stop Time Status Admin Acetaminophen 650 MG Q6P PRN 10/21 0815 AC PO Divalproex Sodium 250 MG BID 10/23 2100 AC 10/25 PO 0859 Donepezil HCl 10 MG DAILY 10/21 09 AC 10/25 PO 0859 Insulin Aspart 0 TIDAC 10/23 0845 AC 10/25 SC 1320 Insulin Detemir 15 UNITS QPM 10/23 2099 AC 10/24 SC 2106 Insulin Detemir 15 UNITS DAILY 05/899 AC 10/25 SC 1137 Levothyroxine Sodium 0.075 MG DAILY 10/21 09 AC 10/25 PO 0859 Lisinopril 10 MG DAILY 10/23 1849 AC 10/25 PO 0858 Magnesium Oxide 400 MG BID 10/22 2100 AC 10/25 PO 0859 Octreotide Acetate 500 MCG Q20H 10/23 2200 DC 10/24 Sodium Chloride 500 ML IV 10/25 599 1711 Pantoprazole Sodium 40 MG BID 10/21 899 AC 10/25 IV 0858 Pravastatin Sodium 10 MG DAILY 10/21 899 AC 10/25 PO 0859 Results Pertinent Lab Results: Laboratory Tests 10/25 10/25 1529 0602 Hematology CBC w Diff NO MAN DIFF REQ NO MAN DIFF REQ WBC (4.8 - 10.8 /CUMM) 10.2 10.5 RBC (4.20 - 5.40 /CUMM) 2.88 L 2.75 L Hgb (12.0 - 16.0 G/DL) 8.6 L 8.1 L Hct (37 - 47 %) 25.8 L 24.7 L MCV (81.0 - 99.0 FL) 89.6 89.8 MCH (27.0 - 31.0 PG) 29.8 29.3 MCHC (33.0 - 37.0 G/DL) 33.3 32.6 L RDW (11.5 - 14.5 %) 15.4 H 15.3 H Plt Count (130 - 400 /CUMM) 206 185 MPV (7.4 - 10.4 FL) 7.4 7.3 L Gran % (42.2 - 75.2 %) 46.0 43.0 Lymphocytes % (20.5 - 51.1 %) 43.7 47.5 Monocytes % (1.7 - 9.3 %) 7.3 7.2 Eosinophils % (0 - 5 %) 2.6 2.1 Basophils % (0.0 - 2.0 %) 0.4 0.2 Absolute Granulocytes (1.4 - 6.5 /CUMM) 4.7 4.5 Absolute Lymphocytes (1.2 - 3.4 /CUMM) 4.5 H 5.0 H Absolute Monocytes (0.10 - 0.60 /CUMM) 0.7 H 0.8 H Absolute Eosinophils (0.0 - 0.7 /CUMM) 0.3 0.2 Absolute Basophils (0.0 - 0.2 /CUMM) 0 0 05/07 05/06 0635 0730 Chemistry Sodium (137 - 145 mmol/L) 134 L 136 L Potassium (3.5 - 5.1 mmol/L) 4.3 4.1 Chloride (98 - 107 mmol/L) 95 L 96 L Carbon Dioxide (22 - 30 mmol/L) 29 29 Anion Gap (5 - 16) 9 11 BUN (7 - 17 mg/dL) 11 9 Creatinine (0.5 - 1.0 mg/dL) 0.6 0.5 Estimated GFR (>60 ml/min) > 60 > 60 BUN/Creatinine Ratio (7 - 25 %) 18.3 Glucose (65 - 99 mg/dL) 82 Calcium (8.4 - 10.2 mg/dL) 8.5 Phosphorus (2.5 - 4.5 mg/dL) 4.5 Magnesium (1.6 - 2.3 mg/dL) 2.1 Total Bilirubin (0.2 - 1.3 mg/dL) 0.3 0.5 Direct Bilirubin (< 0.4 mg/dL) 0.3 AST (14 - 36 U/L) 75 H 141 H ALT (9 - 52 U/L) 100 H 156 H Alkaline Phosphatase (<127 U/L) 73 62 Total Protein (6.3 - 8.2 g/dL) 6.0 L Albumin (3.5 - 5.0 g/dL) 2.9 L 3.5 Coagulation PT (9.4 - 12.5 SEC) 15.4 H INR (0.90 - 1.19) 1.41 H Hematology CBC w Diff NO MAN DIFF REQ WBC (4.8 - 10.8 /CUMM) 9.9 RBC (4.20 - 5.40 /CUMM) 3.19 L Hgb (12.0 - 16.0 G/DL) 9.5 L Hct (37 - 47 %) 28.5 L MCV (81.0 - 99.0 FL) 89.3 MCH (27.0 - 31.0 PG) 29.7 MCHC (33.0 - 37.0 G/DL) 33.3 RDW (11.5 - 14.5 %) 15.2 H Plt Count (130 - 400 /CUMM) 233 MPV (7.4 - 10.4 FL) 7.5 Gran % (42.2 - 75.2 %) 61.0 Lymphocytes % (20.5 - 51.1 %) 29.2 Monocytes % (1.7 - 9.3 %) 7.5 Eosinophils % (0 - 5 %) 1.9 Basophils % (0.0 - 2.0 %) 0.4 Absolute Granulocytes (1.4 - 6.5 /CUMM) 6.1 Absolute Lymphocytes (1.2 - 3.4 /CUMM) 2.9 Absolute Monocytes (0.10 - 0.60 /CUMM) 0.7 H Absolute Eosinophils (0.0 - 0.7 /CUMM) 0.2 Absolute Basophils (0.0 - 0.2 /CUMM) 0 /05 05/ 1710 0650 Chemistry Lactic Acid (0.7 - 2.1 mmol/L) 1.1 Hematology CBC w Diff NO MAN DIFF REQ WBC (4.8 - 10.8 /CUMM) 9.6 RBC (4.20 - 5.40 /CUMM) 2.81 L Hgb (12.0 - 16.0 G/DL) 8.2 L Hct (37 - 47 %) 25.0 L MCV (81.0 - 99.0 FL) 89.1 MCH (27.0 - 31.0 PG) 29.2 MCHC (33.0 - 37.0 G/DL) 32.8 L RDW (11.5 - 14.5 %) 15.0 H Plt Count (130 - 400 /CUMM) 152 MPV (7.4 - 10.4 FL) 7.2 L Gran % (42.2 - 75.2 %) 48.2 Lymphocytes % (20.5 - 51.1 %) 40.8 Monocytes % (1.7 - 9.3 %) 8.0 Eosinophils % (0 - 5 %) 2.1 Basophils % (0.0 - 2.0 %) 0.9 Absolute Granulocytes (1.4 - 6.5 /CUMM) 4.6 Absolute Lymphocytes (1.2 - 3.4 /CUMM) 3.9 H Absolute Monocytes (0.10 - 0.60 /CUMM) 0.8 H Absolute Eosinophils (0.0 - 0.7 /CUMM) 0.2 Absolute Basophils (0.0 - 0.2 /CUMM) 0.1 10/230 1956 Chemistry Sodium (137 - 145 mmol/L) 138 Potassium (3.5 - 5.1 mmol/L) 3.6 Chloride (98 - 107 mmol/L) 99 Carbon Dioxide (22 - 30 mmol/L) 29 Anion Gap (5 - 16) 9 BUN (7 - 17 mg/dL) 11 Creatinine (0.5 - 1.0 mg/dL) 0.6 Estimated GFR (>60 ml/min) > 60 Glucose (65 - 99 mg/dL) 53 L Calcium (8.4 - 10.2 mg/dL) 8.2 L Phosphorus (2.5 - 4.5 mg/dL) 3.5 Magnesium (1.6 - 2.3 mg/dL) 1.7 Total Bilirubin (0.2 - 1.3 mg/dL) 0.4 AST (14 - 36 U/L) 238 H ALT (9 - 52 U/L) 193 H Albumin (3.5 - 5.0 g/dL) 3.1 L Hematology CBC w Diff MAN DIFF ORDERED NO MAN DIFF REQ WBC (4.8 - 10.8 /CUMM) 17.0 H 9.9 RBC (4.20 - 5.40 /CUMM) 2.87 L 2.79 L Hgb (12.0 - 16.0 G/DL) 8.5 L 8.2 L Hct (37 - 47 %) 25.8 L 24.8 L MCV (81.0 - 99.0 FL) 89.8 88.9 MCH (27.0 - 31.0 PG) 29.7 29.4 MCHC (33.0 - 37.0 G/DL) 33.1 33.1 RDW (11.5 - 14.5 %) 15.0 H 15.2 H Plt Count (130 - 400 /CUMM) 203 158 MPV (7.4 - 10.4 FL) 7.6 7.3 L Gran % (42.2 - 75.2 %) 37.0 L 51.6 Lymphocytes % (20.5 - 51.1 %) 52.1 H 36.3 Monocytes % (1.7 - 9.3 %) 8.7 9.3 Eosinophils % (0 - 5 %) 1.9 2.3 Basophils % (0.0 - 2.0 %) 0.3 0.5 Absolute Granulocytes (1.4 - 6.5 /CUMM) 6.3 5.1 Segmented Neutrophils (42.2 - 75.2 %) 47 Absolute Lymphocytes (1.2 - 3.4 /CUMM) 8.9 H 3.6 H Lymphocytes (20.5 - 51.1 %) 46 Monocytes (1.7 - 9.3 %) 5 Absolute Monocytes (0.10 - 0.60 /CUMM) 1.5 H 0.9 H Eosinophils (0 - 5.0 %) 2 Absolute Eosinophils (0.0 - 0.7 /CUMM) 0.3 0.2 Absolute Basophils (0.0 - 0.2 /CUMM) 0.1 0 Platelet Estimate (ADEQUATE) ADEQUATE Hypochromic-Microcytic 2+
[2017-10-25 23:11] VITALS: BP 132/78
[2017-10-26 07:18] VITALS: BP 122/62
--- NOTE | 2017-10-26 07:26 | PN- Housestaff ---
Dena FLORES,Vinicio 10/26/1725: Subjective Follow-up For: Bradycardia Grade 2 esophageal varices status post banding Acute blood loss anemia Tele-Events Since Last Visit: Sinus rhythm HR 40s-70s Subjective: Patient was seen and examined at bedside. She is resting comfortably. She had no acute events overnight. She states that she had a dark nonbloody bowel movement overnight. She does report feeling weak, per the nurse she was a full assist for stand and pivot to the chair yesterday. She has no new complaints today, and denies any chest pain, shortness of breath, palpitations, fever, chills, nausea or vomiting. Review of Systems Constitutional: Reports: see HPI. Objective Last 24 Hrs of Vital Signs/I&O Vital Signs Date Time Temp Pulse Resp B/P B/P Pulse O2 O2 Flow FiO2 Mean Ox Delivery Rate 10/26 0618 97.6 62 20 122/62 94 Nasal Cannula 10/25 2311 99.6 74 28 132/78 96 10/25 2258 Nasal 2.0L Cannula 10/25 1400 97.6 77 20 110/62 98 10/25 0800 97 Nasal 2.0L Cannula Intake & Output 10/26 0800 10/26 0000 10/25 1600 Intake Total 120 240 480 Output Total 350 Balance 120 240 130 Intake, IV 30 Intake, Oral 120 240 450 Number 1 Bowel Movements Output, Urine 350 Patient 146 lb Weight Physical Exam General Appearance: Alert, Cooperative, No Acute Distress Skin Temp/Moisture Exam: Warm/Dry Cardiovascular: Regular Rate, Normal S1, Normal S2 Lungs: Clear to Auscultation, Normal Air Movement Abdomen: Normal Bowel Sounds, Soft, No Tenderness Neurological: Normal Speech, Strength at 5/5 X4 Ext, Normal Tone, Sensation Intact Current Medications: Current Medications Sig/Atul Start time Last Medication Dose Route Stop Time Status Admin Acetaminophen 650 MG Q6P PRN 10/21 0815 AC PO Divalproex Sodium 250 MG BID 10/23 2100 AC 10/25 PO 214 Donepezil HCl 10 MG DAILY 10/21 09 AC 10/25 PO 0859 Insulin Aspart 0 TIDAC 10/23 0845 AC 10/25 SC 1839 Insulin Detemir 15 UNITS QPM 10/23 2100 AC 10/25 SC 2149 Insulin Detemir 15 UNITS DAILY 10/23 0900 AC 10/25 SC 1137 Levothyroxine Sodium 0.075 MG DAILY 10/21 0900 AC 10/25 PO 0859 Lisinopril 10 MG DAILY 10/23 1849 AC 10/25 PO 0858 Magnesium Oxide 400 MG BID 10/22 2100 AC 10/25 PO 2143 Pantoprazole Sodium 40 MG BID 10/21 0900 AC 10/25 IV 2141 Pravastatin Sodium 10 MG DAILY 10/21 0900 AC 10/25 PO 0859 Assessment/Plan Assessment: Patient is an 82-year-old female with a PMH significant for osteoporosis, Alzheimer's and his dementia, depression, DM type II, hypothyroidism, HTN, Sotelo' s palsy who presented to [facility] ED for hematemesis. EGD revealed grade 2 esophageal varices which were banded. #Acute blood loss anemia Patient's varices were banded on 10/21/17. -H/H holding steady today - Patient is stable for discharge, pending PT evaluation -Will follow-up closely with GI as an outpatient -Starting by mouth PPIs today #Bradycardia, resolved Patient became bradycardiac to the 30s after receiving propranolol. Heart rate has remained in the 50s70s since being monitored on telemetry, with 1 brief episode of a heart rate of 49. #Chronic medical problems Continue home regimen of medications Diet: Diabetic diet DVT prophylaxis: Alps, no pharmacologic DVT prophylaxis secondary to acute blood loss anemia CODE STATUS: Full code Problem List: 1. Esophageal varices 2. Anemia due to blood loss, acute Pain Ratin Pain Location: none Pain Goal: Remain pain free Pain Plan: pain pathway Tomorrow's Labs & Rationales: none Chinedu Bah MD 10/26/17 1056: Attending MD Review Statement Attending Statement Attending MD Statement: examined this patient, discuss w/resident/PA/BEN DAY ARTIST, agreed w/resident/PA/BEN DAY ARTIST, reviewed EMR data (avail) Attending Assessment/Plan: 82F PMH osteoarthritis, constipation, depression, Alzheimer's dementia, diabetes mellitus type 2, hypothyroidism, hypertension sent from [facility] with multiple episodes of hematemesis with EGD showing bleeding esophageal varices s/p band ligation, started on Propranolol post-procedure complicated by bradycardia to 30 's requiring telemetry monitoring, now hemodynamically stable with stable CBC. Primarily Vietnamese speaking. No complaints today, pleasantly confused but at baseline. CBC stable. 1. Bleeding esophageal varices 2. Acute blood loss anemia 3. Symptomatic bradycardia secondary to b-jody Plan - Stable for discharge. Will obtain PT evaluation for discharge planning, as patient has required assistance with ambulation. - CBC to be checked as outpatient in 1 week - Follow GI recommendations and follow up as outpatient for repeat EGD - Avoid b-blockers - Continue home medications
[2017-10-26 07:56] LABS: ABSOLUTE BASOPHIL COUNT 0 /CUMM (0.0-0.2); ABSOLUTE EOSINOPHIL COUNT 0.2 /CUMM (0.0-0.7); ABSOLUTE GRANULOCYTE CT 5.2 /CUMM (1.4-6.5); ABSOLUTE LYMPH COUNT 4.7 /CUMM (1.2-3.4); ABSOLUTE MONOCYTE COUNT 0.8 /CUMM (0.10-0.60); BASOPHIL % 0.3 % (0.0-2.0); EOSINOPHIL % 1.6 % (0-5); GRANULOCYTE % 47.6 % (42.2-75.2); HEMATOCRIT 28.1 % (37-47); MEAN CORPUSCULAR HGB 30.1 PG (27.0-31.0); MEAN CORPUSCULAR HGB CONC 33.7 G/DL (33.0-37.0); MEAN CORPUSCULAR VOLUME 89.2 FL (81.0-99.0); MEAN PLATELET VOLUME 7.3 FL (7.4-10.4); PLATELET COUNT 237 /CUMM (130-400); RBC DISTRIBUTION WIDTH 15.5 % (11.5-14.5); RED BLOOD CELL CT 3.16 /CUMM (4.20-5.40)
--- NOTE | 2017-10-26 08:06 | PN- Student ---
[facility],Jason 10/26/17 0759: Subjective Subjective: Tely events: Sinus rhythm 49-61 with some juctional beats Subjective: No acute events overnight. Patient seen and examined this morning. Patient reported feeling weak and tire. Patient having good apetite. Per nurse, patient was out of bed to the chair yesterday. Complains of nonbloody dark color bowel movement yesterday night. Denied nausea/vomiting, palpitations. Objective Objective: PE: General= Patient is alert, without any distress HEENT= NCAT, anicteric sclera, no exudate CVS= normal S1 and S2 Lungs= clear billateral Abdomen= presented bowel sounds, soft, nontender, nondistended Exremities= no clubbing, no edema Neuro= normal speech, intact tone and sensation Results Results: Laboratory Tests 10/26 10/25 0650 1529 Chemistry Sodium (137 - 145 mmol/L) 138 Potassium (3.5 - 5.1 mmol/L) 4.8 Chloride (98 - 107 mmol/L) 96 L Carbon Dioxide (22 - 30 mmol/L) 32 H Anion Gap (5 - 16) 10 BUN (7 - 17 mg/dL) 12 Creatinine (0.5 - 1.0 mg/dL) 0.6 Estimated GFR (>60 ml/min) > 60 BUN/Creatinine Ratio (7 - 25 %) 20.0 Hematology CBC w Diff NO MAN DIFF REQ NO MAN DIFF REQ WBC (4.8 - 10.8 /CUMM) 11.0 H 10.2 RBC (4.20 - 5.40 /CUMM) 3.16 L 2.88 L Hgb (12.0 - 16.0 G/DL) 9.5 L 8.6 L Hct (37 - 47 %) 28.1 L 25.8 L MCV (81.0 - 99.0 FL) 89.2 89.6 MCH (27.0 - 31.0 PG) 30.1 29.8 MCHC (33.0 - 37.0 G/DL) 33.7 33.3 RDW (11.5 - 14.5 %) 15.5 H 15.4 H Plt Count (130 - 400 /CUMM) 237 206 MPV (7.4 - 10.4 FL) 7.3 L 7.4 Gran % (42.2 - 75.2 %) 47.6 46.0 Lymphocytes % (20.5 - 51.1 %) 42.9 43.7 Monocytes % (1.7 - 9.3 %) 7.6 7.3 Eosinophils % (0 - 5 %) 1.6 2.6 Basophils % (0.0 - 2.0 %) 0.3 0.4 Absolute Granulocytes (1.4 - 6.5 /CUMM) 5.2 4.7 Absolute Lymphocytes (1.2 - 3.4 /CUMM) 4.7 H 4.5 H Absolute Monocytes (0.10 - 0.60 /CUMM) 0.8 H 0.7 H Absolute Eosinophils (0.0 - 0.7 /CUMM) 0.2 0.3 Absolute Basophils (0.0 - 0.2 /CUMM) 0 0 Vital Signs Date Time Temp Pulse Resp B/P B/P Pulse O2 O2 Flow FiO2 Mean Ox Delivery Rate 10/26 0718 97.6 62 20 122/62 94 Nasal Cannula 10/25 2311 99.6 74 28 132/78 96 10/25 2258 Nasal 2.0L Cannula 10/25 1400 97.6 77 20 110/62 98 Intake & Output 10/26 1600 10/26 0800 05 0000 Intake Total 120 240 Output Total Balance 120 240 Intake, Oral 120 240 Number 1 Bowel Movements Patient 146 lb Weight Assessment/Plan Assessment: 82 y/o female with PMHx of osteoarthritis, Alzheimer, DM type 2, hypothyroidism, HTN who presented to the ED for evaluation of hematemesis. Found to have type 2 esophageal varices on EGD, s/p band ligation. Post-procedure propranolol was given which cause bradycardia. H& H stable. Problems: 1. Bleeding type 2 esopahgeal varices 2. Bradycardia (most likely due to propranolol) 3. Acute blood loss anemia Plan: Plan: 1. Daily CBC-H&H stable 2. PO PPI today 3. PT eval 4. F/U GI and Cards rec 5. Cont. home meds 6. DVT prophylaxis 7. Discharge in the next 24 hrs, pending on PT eval 8. F/U with GI as outpatient Dena FLORES,Vinicio 11/02/17 0922: Resident Review Statement Resident Statement: discussed with student, agree with his A/P
[2017-10-26 12:13] VITALS: BP 122/62
[2017-10-26] MEDS ORDERED: OMEPRAZOLE20 M2 PO (13:09)
--- NOTE | 2017-10-26 13:14 | Patient Discharge Instructions ---
Discharge Instructions General Discharge Information You were seen/treated for: Acute blood loss anemia Esophageal Varicies Bradycardia Special Instructions: Call the office of Dr. Leyva immediately upon discharge to schedule a follow- up appointment. We have provided you with a referral. Follow-up with your primary care physician within one week of discharge. Take all medications as directed. Call your doctor or return to the ER if he should have bloody vomit, persistently dark stools, bloody stools, lightheadedness, fall, loss of consciousness. Acute Coronary Syndrome Inclusion Criteria At DC or during hospital stay patient has or had the following: ACS DIAGNOSIS No Discharge Core Measures Meds if any: Prescribed or Continued at Discharge Meds if any: NOT Prescribed or Continued at Discharge Congestive Heart Failure Inclusion Criteria At DC or during hospital stay patient has or had the following: CHF DIAGNOSIS No Discharge Core Measures Meds if any: Prescribed or Continued at Discharge Meds if any: NOT Prescribed or Continued at Discharge Cerebrovascular accident Inclusion Criteria At DC or during hospital stay patient has or had the following: CVA/TIA Diagnosis No Discharge Core Measures Meds if any: Prescribed or Continued at Discharge Meds if any: NOT Prescribed or Continued at Discharge Venous thromboembolism Inclusion Criteria VTE Diagnosis No VTE Type NONE VTE Confirmed by (Test) NONE Discharge Core Measures - Per Current guidelines, there needs to be overlap - treatment for the first 5 days of Warfarin therapy. - If discharged on Warfarin prior to 5 days of - overlap therapy, the patient will need to be - assessed for post discharge needs including - *Post discharge parental anticoagulation - *Warfarin and/or parental anticoagulation education - *Follow up date to check INR post discharge At least 5 days overlap therapy as Inpatient No Meds if any: Prescribed or Continued at Discharge Note: Overlap Therapy is Warfarin and Anticoagulant Meds if any: NOT Prescribed or Continued at Discharge
--- NOTE | 2017-10-26 13:27 | Discharge Summary ---
Visit Information Visit Dates Admission Date: 10/21/17 Discharge Date: 10/26/17 Hospital Course Course Attending Physician: Chinedu Bah MD Primary Care Physician: Bubba Stallworth MD Consulting Request: Consulting Specialty: General Internal Medicine Hospital Course: Patient is an 82-year-old female with a PMH significant for osteoarthritis, depression, Alzheimer's dementia, type 2 diabetes mellitus, hypothyroidism, hypertension, gait instability, hyperlipidemia, Sotelo's palsy who was brought to the [facility] ED by ambulance from [facility] after multiple episodes of hematemesis. Patient was admitted to the ICU due to acute blood loss anemia. Stool guaiac was negative. Denied any use of [id number] analgesics, aspirin, anticoagulants, antiplatelet agents or alcohol abuse. No prior history of GI bleeds. Patient had stat EGD done showing grade 2 esophageal varices with stigmata of bleeding status post varicieal band ligation. No history of liver disease, coagulation disorders. Patient also reported abdominal pain after the EGD, CT abdomen was done to rule out any perforation which was negative. Patient was never admitted in the past for any GI bleed. H&H 8.6/26.5 at the time of admission(Baseline Hb 11.5) stable s/p 1 unit PRBCs. CBC was initially monitored Q 4 x 24 hrs, next day changed to Q12. Patient was also kept NPO overnight after the EGD and started on clear liquids in the morning. Patient also had elevated INR of 4.5 and hypoalbuminemia of 3.1. Patient also had hyponatremia. Given coagulopathy hypoalbuminemia and hyponatremia, there is possibility for underlying liver disease. However patient has no known history of any hepatitis, autoimmune disease, cirrhosis of liver. RUQ Dupplex US is negative. Hepatitis panel also negative. Likely AGUIRRE. She was treated with IV octreotide and IV ceftriaxone, both were discontinued prior to discharge. Patient was transferred to the general medicine floor, after starting on propranolol, patient became bradycardic with a heart rate of 38 and was transferred to telemetry. She was monitored for 3 days with no acute events on telemetry, her heart rate remained stable between 50s70s. She will be discharged with close follow-up with GI, and on a oral PPI. Allergies: Coded Allergies: escitalopram (From LEXAPRO) (UNKNOWN 10/21/17) olanzapine (From ZYPREXA) (UNKNOWN 10/21/17) Significant Procedures: EGD with variceal banding Disposition Summary Disposition Principal Diagnosis: Acute blood loss anemia secondary to esophageal variceal bleed Additional Diagnosis: Bradycardia, likely underlying liver disease, hyponatremia, leukocytosis Discharge Disposition: SNF Discharge Instructions General Discharge Information Code Status: Full Code Patient's Diet: Diabetic diet, sodium restriction Patient's Activity: As tolerated, walker dependent Follow-Up Instructions/Appts: Call the office of Dr. Leyva immediately upon discharge to schedule a follow- up appointment. We have provided you with a referral. Follow-up with your primary care physician within one week of discharge. Medications at Discharge Discharge Medications: Stop taking the following medications: Vilazodone (Viibryd) 40 MG TABLET ORAL DAILY Days = 14 Continue taking these medications: Levothyroxine Sodium (Levothyroxine Sodium) 75 MCG TABLET 1 Tablet ORAL DAILY Days = 30 Lisinopril (Lisinopril) 10 MG TABLET 1 Tablet ORAL DAILY Days = 30 Divalproex Sodium (Depakote Sprinkle) 125 MG CAP.SPRINK 250 Milligram ORAL TWICE DAILY Days = 30 Metformin HCl (Metformin HCl) 1,000 MG TABLET 1 Tablet ORAL TWICE DAILY Days = 30 Propylene Glycol/Peg 400 (Systane 0.3-0.4% Eye Drops) 0.3 %-0.4 % DROPS 1 Drop In the eye 4 TIMES A DAY Donepezil HCl (Donepezil HCl) 10 MG TABLET 1 Tablet ORAL DAILY Days = 30 Pravastatin Sodium (Pravastatin Sodium) 10 MG TABLET 1 Tablet ORAL DAILY Days = 30 Calcium Carbonate/Vitamin D3 (Calcium 500 + D Tablet) 500 MG-400 TABLET 1 Tablet ORAL TWICE DAILY Sennosides/Docusate Sodium (Senexon-S Tablet) 8.6 MG-50 MG TABLET 1 Tablet ORAL BEDTIME Polyethylene Glycol 3350 (Gavilax) 17 GRAM/DOSE POWDER 17 G ORAL DAILY as needed for CONSTIPATION Magnesium Hydroxide (Milk Of Magnesia) 400 MG/5 ML ORAL.SUSP 30 Milliliters ORAL DAILY as needed for CONSTIPATION Bisacodyl (Bisac-Evac) 10 MG SUPP.RECT 1 SUPPOSITORY RECTALLY DAILY as needed for CONSTIPATION Na Phos,M-B/Na Phos,Di-Ba (Enema) 19 GRAM-7 GRAM/118 ML ENEMA 1 SUPPOSITORY RECTALLY DAILY as needed for CONSTIPATION Acetaminophen (Acetaminophen) 500 MG TABLET 650 Milligram ORAL Q4H,PRN as needed for PAIN OR TEMP GREATER THAN 100 Nut.tx.glucose Intolerance,Soy (Glucerna) 1 EACH BAR 1 ORAL DAILY as needed for Insulin Lispro (Humalog) 100 UNIT/ML VIAL Inject into fatty tissue 4X DAILY Days = 3 Instructions: SLIDING SCALE: BS 151-200 GIVE 2 UNITS BS 201-250 GIVE 4 UNITS BS 251-300 GIVE 6 UNITS BS 301-350 GIVE 8 UNITS BS 351-400 GIVE 10 UNITS Insulin-Lantus (Lantus) 100 UNIT/ML VIAL 30 Units Inject into fatty tissue Every Morning Days = 28 Insulin Glargine,Hum.rec.anlog (Lantus Solostar) 100 UNIT/ML (3 ML) INSULN.PEN 30 Unit Inject into fatty tissue Every night Alendronate Sodium (Alendronate Sodium) 35 MG TABLET 1 Tablet ORAL Once a Week Days = 30 Start taking the following new medications: Omeprazole (Omeprazole) 20 MG CAPSULE.DR 40 Milligram ORAL DAILY BEFORE BREAKFAST Qty = 30 No Refills Copies To: Basim FLORES,Bubba Meeks; Mitchel FLORES,Staci
[2018-01-06] MEDS ORDERED: MELATONIN3 M4 PO (08:13)
[2018-01-06] MEDS ORDERED: PANTOPRAZOLE SO40 M1 PO (08:15)
[2018-01-06] MEDS ORDERED: NADOLOL20 M1 PO (08:16)
[2018-01-06] MEDS ORDERED: DEPAKOTE SPRIN125 M1 PO (08:18)
[2018-01-06] MEDS ORDERED: BUPROPION HCL150 M4 PO (08:18)
[2018-01-06] MEDS ORDERED: TRAZODONE HCL50 M1 PO (08:19)
== END 2017-10-26 14:40 | DRG 369 ==
LOC: ERH 03:23 → ERHI 06:46 → CRI 06:46 → ENRESERV 07:42 → ENTRNSPT 08:09 → EDTRNSPTSTS 08:25 → EDTRNSPT 08:25 → CRI 08:37 → CMPTRNSPT 08:47 → 2NA 10-23 21:26 → ENTRNSPT 10-24 11:18 → EDTRNSPTSTS 10-24 11:28 → EDTRNSPT 10-24 11:28 → 1NO 10-24 11:41 → CMPTRNSPT 10-24 11:56 → 1NO 10-25 07:50 → ENPENDDIS 10-26 11:30 → 1NO 10-26 14:40
PROVIDERS: Dermatology; Emergency Medicine; Hospitalist; Internal Medicine; Student in an Organized Health Care Education/Training Program
PROC: 06L Lower Veins, Occlusion (ICD-10-PCS; principal; 2017-10-21)
PROC: 30233N1 Transfusion of Nonautologous Red Blood Cells into Peripheral Vein, Percutaneous Approach (ICD-10-PCS; 2017-10-21)
DX: I85.01 Esophageal varices with bleeding (principal); D62 Acute posthemorrhagic anemia; I95.9 Hypotension, unspecified; D68.9 Coagulation defect, unspecified; E11.9 Type 2 diabetes mellitus without complications; G30.9 Alzheimer's disease, unspecified; K75.81 Nonalcoholic steatohepatitis (NASH); E87.1 Hypo-osmolality and hyponatremia; F02.80 Dementia in other diseases classified elsewhere, unspecified severity, without behavioral disturbance, psychotic disturbance, mood disturbance, and anxiety; D72.829 Elevated white blood cell count, unspecified; Z79.4 Long term (current) use of insulin; F32.9 Major depressive disorder, single episode, unspecified; G51.0 Bell's palsy; Z91.81 History of falling; I10 Essential (primary) hypertension; E78.5 Hyperlipidemia, unspecified; K92.0 Hematemesis; K59.09 Other constipation; I44.0 Atrioventricular block, first degree; R00.1 Bradycardia, unspecified
CPT/HCPCS: 1NP; 2NASP; 83516; CCU; 36415; 36592; 71045; 74018; 74176; 81001; 82436; 86920; 87040; 93005; 93010; 96361; 96374; 96375; 97161-GP; 97530-GO; 99291; J0131; J0696; J1815; J2354; J2765; J7040; J7042; P9016